=== PATIENT | male | born 1940 | race Caucasian/White ===

== ENCOUNTER 2019-06-14 12:06 | Inpatient (IN) | payer MEDICARE, OTHER ==
[~2019-06-14] VITALS: Ht 175.3 cm; Wt 91.3 kg
[2019-06-14] VITALS (8 sets, daily range): BP systolic 98–169; BP diastolic 48–92
--- NOTE | 2019-06-14 13:54 | RAD ---
CT HEAD AND CERVICAL SPINE WO History: Trauma. Head and neck pain. Mid sacral relation. Comparison: None. Technique: Noncontrast CT imaging was performed of the head and cervical spine. Coronal and sagittal reconstructions were performed. Exposure: One or more of the following individualized dose reduction techniques were utilized for this examination: 1. Automated exposure control 2. Adjustment of the mA and/or kV according to patient size 3. Use of iterative reconstruction technique. Findings: Head CT: No intracranial hemorrhage. No mass effect. No hydrocephalus. Extra-axial spaces are unremarkable. Mild foci of decreased attenuation within the hemispheric white matter, most often due to chronic microvascular ischemia. Imaged orbits are unremarkable. Imaged paranasal sinuses and mastoid air cells are clear. Chronic nasal bone deformity. Cervical spine CT: Acute fracture involving C2 odontoid base with extension into the lateral mass bilaterally. Normal alignment C1 on C2. T2 superior endplate compression fracture with mild height loss. Partial vertebral body and facet bony fusion C3-C4. Minimal grade 1 anterolisthesis C7 on T1. Multilevel degenerative disc changes most prominent C5-C6 and C6-C7. Multilevel facet arthropathy. Multilevel bony neural foraminal narrowing. Multilevel canal narrowing. Retropharyngeal course of the bilateral common and internal carotid arteries. Pulmonary emphysema. Impression: Head CT: 1. No acute intracranial abnormality. Cervical spine CT: 1. Acute type III odontoid fracture. 2. Mild chronic appearing T2 compression fracture. 3. Multilevel cervical spondylosis. Electronically signed by: Oscar Garcia DO (06/14/2019 1:51 PM) [id number]
--- NOTE | 2019-06-14 14:10 | PHYS DOC ---
Past Medical History Past Medical History: A-Fib, High Cholesterol, Hypertension, Hypothyroid, Renal Disease (stage 2 CRF) Additional Past Medical Histor: gout, BPH, osteoporosis, Additional Past Surgical Histo: back, nasal x2 Alcohol Use: Occasionally (wine weekly while playing cards) Drug Use: None Adult General Chief Complaint Chief Complaint: MECHANICAL FALL HPI HPI Patient is a 78 year old male who presents to the emergency department with complaints of neck pain and a headache after a fall down approximately 7 steps last night. Patient states he has a history of balance problems and he had been drinking wine last night when he lost his balance and fell down the steps. Patient states that he takes Pradaxa for a-fib. He denies any nausea, vomiting, loss of consciousness, numbness, tingling, weakness, vision changes, coordination problems, or difficulty speaking. He states that he has felt tightness in his neck. Patient currently rates his pain a 5 out of 10 on the pain scale, there are no alleviating factors the pain increases with movement. Patient states that he had drank approximately 2 glasses of wine while he was playing cards and reported feeling intoxicated at the time of the fall to nursing staff. Pt denies any bleeding, abrasions, or bruising at this time. He denies any chest pain, shortness of breath, palpitations, or dizziness prior to the fall. All other ROS is neg unless otherwise noted in HPI. Review of Systems Review of Systems See Above Allergies Allergies Allergies Coded Allergies Type Severity Reaction Last Updated Verified No Known Drug Allergies 06/14/19 No Physical Exam Physical Exam See Above Constitutional: Well developed, well nourished, no acute distress, non-toxic appearance. [] HENT: Normocephalic, atraumatic, bilateral external ears normal, oropharynx moist, no oral exudates, nose normal. [] Eyes: PERRLA, EOMI, conjunctiva normal, no discharge. [] Neck: ROM testing deferred. TTP of bony cervical spine. no crepitus or deformity, no stridor. [] Cardiovascular:Heart rate regularly irregular rhythm Lungs & Thorax: Bilateral breath sounds clear to auscultation [] Abdomen: soft, no tenderness Skin: Warm, dry, no erythema, no rash. [] Back: No CVA tenderness. [] Extremities: No cyanosis, no clubbing, ROM intact, no edema. [] Neurologic: Alert and oriented X 3, no focal deficits noted. [] Psychologic: Affect normal, judgement normal, mood normal. [] Current Patient Data Vital Signs Vital Signs Date Time Temp Pulse Resp B/P (MAP) Pulse Ox O2 Delivery O2 Flow Rate FiO2 06/14/19 14:30 68 16 95 06/14/19 12:40 97.5 172/80 (110) Room Air 97.5 EKG EKG [] Radiology/Procedures Radiology/Procedures PROCEDURE: CT HEAD AND CERVICAL SPINE WO CT HEAD AND CERVICAL SPINE WO History: Trauma. Head and neck pain. Mid sacral relation. Comparison: None. Technique: Noncontrast CT imaging was performed of the head and cervical spine. Coronal and sagittal reconstructions were performed. Exposure: One or more of the following individualized dose reduction techniques were utilized for this examination: 1. Automated exposure control 2. Adjustment of the mA and/or kV according to patient size 3. Use of iterative reconstruction technique. Findings: Head CT: No intracranial hemorrhage. No mass effect. No hydrocephalus. Extra-axial spaces are unremarkable. Mild foci of decreased attenuation within the hemispheric white matter, most often due to chronic microvascular ischemia. Imaged orbits are unremarkable. Imaged paranasal sinuses and mastoid air cells are clear. Chronic nasal bone deformity. Cervical spine CT: Acute fracture involving C2 odontoid base with extension into the lateral mass bilaterally. Normal alignment C1 on C2. T2 superior endplate compression fracture with mild height loss. Partial vertebral body and facet bony fusion C3-C4. Minimal grade 1 anterolisthesis C7 on T1. Multilevel degenerative disc changes most prominent C5-C6 and C6-C7. Multilevel facet arthropathy. Multilevel bony neural foraminal narrowing. Multilevel canal narrowing. Retropharyngeal course of the bilateral common and internal carotid arteries. Pulmonary emphysema. Impression: Head CT: 1. No acute intracranial abnormality. Cervical spine CT: 1. Acute type III odontoid fracture. 2. Mild chronic appearing T2 compression fracture. 3. Multilevel cervical spondylosis. [] Course & Med Decision Making Course & Med Decision Making Pertinent Labs and Imaging studies reviewed. (See chart for details) dx: fall from standing, Acute stage III C2 odontoid fx Pt was placed in a c-collar after arrival to room #11. CT head and C-spine revealed: Head CT: 1. No acute intracranial abnormality. Cervical spine CT: 1. Acute type III odontoid fracture. 2. Mild chronic appearing T2 compression fracture. 3. Multilevel cervical spondylosis. CBC unremarkable, CMP: Con[employer] Pile [employer] Operator 1.4, glucose 104, Mg 1.3, bili 1.2 otherwise unremarkable; PT 19.6, INR 1.7, APTT 46 1411 Spoke with Jumana ZACARIAS with Dr. Saldana, will keep pt in cervical collar and admit to ICU with q 2H neuro checks [address] Mckeon who is the admitting physician, and care was assumed following discussion of patient. Patient's vital signs stable. Patient remains afebrile, appears nontoxic, respirations even and unlabored. Patient will be admitted to the ICU floor. Patient's case and plan of care also discussed with Dr. Addy Falcon Disclaimer Ezekiel Disclaimer This electronic medical record was generated, in whole or in part, using a voice recognition dictation system. Departure Departure Impression: Primary Impression: Odontoid fracture with type III morphology Additional Impression: Fall down steps Disposition: 09 ADMITTED INPATIENT Admitting Physician: MARISSA Marcus) Condition: STABLE Referrals: UNKNOWN PCP NAME (PCP) Problem Qualifiers Primary Impression: Odontoid fracture with type III morphology Encounter type: initial encounter Fracture type: closed Qualified Codes: S12.120A - Other displaced dens fracture, initial encounter for closed fracture Additional Impression: Fall down steps Encounter type: initial encounter Qualified Codes: W10.8XXA - Fall (on) (from) other stairs and steps, initial encounter KELECHI ISABEL APRN Jun 14, 2019 14:10
--- NOTE | 2019-06-14 15:34 | PDOC1 ---
History and Physical Date of Admission Date of Admission DATE: 06/14/19 TIME: 15:30 History of Present Illness History of Present Illness Mr. Gomez had a few glasses of wine last night, playing cards, he then fell down hard, and had severe neck pain. He did go to sleep, and awoke in pain. He walked into the ER today, CT scan neck showed acute c2 fracture, he took his pradaxa this AM for his Afib Past Medical History Cardiovascular: AFIB, HTN Family History Family History: Family History Unknown Social History Smoke: No ALCOHOL: other (heavy at times) Allergies Allergies: Coded Allergies: No Known Drug Allergies (Unverified , 06/14/19) ROS General: No: Chills, Night Sweats, Fatigue, Malaise, Appetite, Other PSYCHOLOGICAL ROS: No: Anxiety, Behavioral Disorder, Concentration difficultie, Decreased libido, Depression, Disorientation, Hallucinations, Hostility, Irritablity, Memory difficulties, Mood Swings, Obsessive thoughts, Physical abuse, Sexual abuse, Sleep disturbances, Suicidal ideation, Other Eyes: No Blurry vision, No Decreased vision, No Double vision, No Dry eyes, No Excessive tearing, No Eye Pain, No Itchy Eyes, No Loss of vision, No Photophobia, No Scotomata, No Uses contacts, No Uses glasses, No Other HEENT: No: Heacaches, Visual Changes, Hearing change, Nasal congestion, Nasal discharge, Oral lesions, Sinus pain, Sore Throat, Epistaxis, Sneezing, Snoring, Tinnitus, Vertigo, Vocal changes, Other ENDOCRINE: No: Breast Changes, Galactorrhea, Hair Pattern Changes, Hot Flashes, Malaise/lethargy, Mood Swings, Palpitations, Polydipsia/polyuria, Skin Changes, Temperature Intolerance, Unexpected Weight Changes, Other Respiratory: No: Cough, Hemoptysis, Orthopnea, Pleuritic Pain, Shortness of breath, SOB with excertion, Sputum Changes, Stridor, Tachypnea, Wheezing, Other Cardiovascular: No Chest Pain, No Palpitations, No Orthopnea, No Paroxysmal Noc. Dyspnea, No Edema, No Lt Headedness, No Other Gastrointestinal: No Nausea, No Vomiting, No Abdominal Pain, No Diarrhea, No Constipation, No Melena, No Hematochezia, No Other Genitourinary: No Dysuria, No Frequency, No Incontinence, No Hematuria, No Retention, No Discharge, No Urgency, No Pain, No Flank Pain, No Other, No , No , No , No , No , No , No Musculoskeletal: Yes Joint Pain, Yes Joint Stiffness, Yes Pain In: (neck) Neurological: Yes Gait Disturbance; No Behavorial Changes, No Bowel/Bladder ControlChng, No Confusion, No Dizziness, No Headaches, No Impaired Coord/balance, No Memory Loss, No Numbness/Tingling, No Seizures, No Speech Problems, No Tremors, No Visual Changes, No Weakness, No Other Skin: No Dry Skin, No Eczema, No Hair Changes, No Lumps, No Mole Changes, No Mottling, No Nail Changes, No Pruritus, No Rash, No Skin Lesion Changes, No Other, No Acne Physical Exam General: Alert, Oriented X3, Cooperative, mild distress HEENT: Atraumatic Lungs: Clear to auscultation Heart: no gallops, no murmurs Rectal Exam: not examined Extremities: No cyanosis, No edema, Normal pulses Skin: No breakdown, No significant lesion Neuro: Normal gait, Normal speech, Normal tone, Sensation intact Psych/Mental Status: Mental status NL, Mood NL Vitals Vitals Vital Signs Date Time Temp Pulse Resp B/P (MAP) Pulse Ox O2 Delivery O2 Flow Rate FiO2 06/14/19 12:40 97.5 66 16 172/80 (110) 98 Room Air 97.5 VTE Prophylaxis Ordered VTE Prophylaxis Devices: Yes VTE Pharmacological Prophylaxi: Contraindicated Assessment/Plan Assessment/Plan neck pain acute c2 fracture, place in hard collar, consult neurosurg htn obese, BMI 31 EtOH use lastnight, binge yesterday afib, rate controlled, HOLD pradaxa, may need surg LYLE SCOTT MD Jun 14, 2019 15:34
[2019-06-14] MEDS ORDERED: METOPROLOL TART IMMED RELEASE 50 MG TABLET. PO ONE (15:45)
[2019-06-14 15:56] LABS: BASO % 1 % (0-3); EOS % 0 % (0-3); HEMATOCRIT 39.8 % (39.0-53.0); HEMOGLOBIN 13.6 g/dL (13.0-17.5); LYMPH # 1.1 x10^3/uL (1.0-4.8); LYMPH % 16 % (24-48); MEAN CORPUSCULAR HEMOGLOBIN 36 pg (25-35); MEAN CORPUSCULAR HGB CONC 34 g/dL (31-37); MEAN CORPUSCULAR VOLUME 105 fL (79-100); MONO # 0.6 x10^3/uL (0.0-1.1); MONO % 8 % (0-9); NEUT % 75 % (31-73); PLATELET COUNT 116 x10^3/uL (140-400); RED BLOOD COUNT 3.78 x10^6/uL (4.30-5.70); RED CELL DISTRIBUTION WIDTH 13.7 % (11.5-14.5); WHITE BLOOD COUNT 6.7 x10^3/uL (4.0-11.0)
[2019-06-14 16:05] LABS: PROTHROMBIN TIME PATIENT 19.6 SEC (11.7-14.0)
[2019-06-14 16:15] LABS: CALCIUM 8.7 mg/dL (8.5-10.1); CREATININE 1.4 mg/dL (0.7-1.3)
[2019-06-14 16:21] LABS: ALBUMIN 3.4 g/dL (3.4-5.0); ALBUMIN/GLOBULIN RATIO 0.7 (1.0-1.7); MAGNESIUM 1.3 mg/dL (1.8-2.4); TOTAL BILIRUBIN 1.2 mg/dL (0.2-1.0); TOTAL PROTEIN 8.2 g/dL (6.4-8.2)
--- NOTE | 2019-06-14 17:08 | PDOC ---
Provider Note Provider Note Patient seen and examined in ER room 11 fell last night down stairs neck pain neuro intact CT with type III odontoid fracture in hard collar keep in ICU overnight with neuro checks Cervical MRI tomorrow will follow LUIS OSORIO MD Jun 14, 2019 17:08
[2019-06-14] MEDS ORDERED: MORPHINE SULFATE 4 MG/ML VIAL. IV PRN (17:30)
[2019-06-14] MEDS ORDERED: MAGN400C PO (17:33)
[2019-06-14] MEDS ORDERED: OMEG1CAP38 PO (17:33)
[2019-06-14] MEDS ORDERED: ATOR40TA59 PO (17:33)
[2019-06-14] MEDS ORDERED: METO200T46 PO (17:33)
[2019-06-14] MEDS ORDERED: AMIO200T4 PO (17:33)
[2019-06-14] MEDS ORDERED: DABI150C PO (17:33)
[2019-06-14] MEDS ORDERED: CHOL10003 PO (17:33)
[2019-06-14] MEDS ORDERED: SOTA160T7 PO (17:33)
[2019-06-14] MEDS ORDERED: ALLO300T PO (17:33)
[2019-06-14] MEDS ORDERED: LEVO150T5 PO (17:33)
[2019-06-14] MEDS ORDERED: TAMS0.4C97 PO (17:33)
[2019-06-14] MEDS ORDERED: FERR324T2 PO (17:33)
[2019-06-14] MEDS ORDERED: UBID200C7 PO (17:33)
[2019-06-14] MEDS ORDERED: MAGNESIUM SULFATE 2GM 50 ML IV ONE (18:00)
[2019-06-14] MEDS: HYDROcodone/APAP 5/325MG 1 TAB TABLET PO PRN ×2 (18:04→23:05)
[2019-06-15] VITALS (16 sets, daily range): BP systolic 123–181; BP diastolic 68–93
[2019-06-15] MEDS: HYDROcodone/APAP 5/325MG 1 TAB TABLET PO PRN ×3 (07:10→17:23)
[2019-06-15 08:57] LABS: CALCIUM 8.5 mg/dL (8.5-10.1); CREATININE 1.3 mg/dL (0.7-1.3); GFR 53.4; MAGNESIUM 1.7 mg/dL (1.8-2.4); POTASSIUM 4.2 mmol/L (3.5-5.1)
[2019-06-15] MEDS: CHOLECALCIFEROL (VITAMIN D3) 1,000 UNIT TABLET PO SCH (10:17)
[2019-06-15] MEDS: MAGNESIUM OXIDE 400 MG TABLET PO SCH (10:19)
[2019-06-15] MEDS: OMEGA-3 FATTY ACIDS/FISH OIL 1,000 MG CAPSULE. PO SCH (10:19)
[2019-06-15] MEDS: AMIODARONE HCL 200 MG TABLET. PO SCH (10:19)
[2019-06-15] MEDS: ALLOPURINOL 300 MG TABLET. PO SCH (10:20)
[2019-06-15] MEDS: METOPROLOL SUCC 24HR ER 100 MG TAB.ER.24H. PO SCH (10:20)
--- NOTE | 2019-06-15 10:57 | NUR ---
SS following for discharge planning. SS reviewed pt chart. Pt is from home with spouse and is currently on room air. SS will continue to follow for discharge planning.
[2019-06-15] MEDS ORDERED: TAMSULOSIN 0.4 MG CAP.ER.24H. PO SCH (11:00)
[2019-06-15] MEDS ORDERED: SOTALOL 80 MG TABLET. PO SCH (11:00)
[2019-06-15] MEDS ORDERED: ATORVASTATIN CALCIUM 40 MG TABLET. PO SCH (11:00)
[2019-06-15] MEDS: LEVOTHYROXINE 150 MCG TABLET PO SCH (11:30)
[2019-06-15] MEDS ORDERED: ANTI-COAG MONITOR BY PHARMACY. MC PRN (11:30)
--- NOTE | 2019-06-15 12:22 | PDOC ---
[employer] NOTE Chief Complaint Chief Complaint Acute type II C2 Odontoid fracture. History of Present Illness History of Present Illness Patient is a 78 year old male who presents to the emergency department with complaints of neck pain and a headache after a fall down approximately 7 steps last night. Patient states he has a history of balance problems and he had been drinking wine last night when he lost his balance and fell down the steps. Patient states that he takes Pradaxa for a-fib. He denies any nausea, vomiting, loss of consciousness, numbness, tingling, weakness, vision changes, coordination problems, or difficulty speaking. He states that he has felt tightness in his neck. Patient currently rates his pain a 5 out of 10 on the pain scale, there are no alleviating factors the pain increases with movement. Patient states that he had drank approximately 2 glasses of wine while he was playing cards and reported feeling intoxicated at the time of the fall to nursing staff. Pt denies any bleeding, abrasions, or bruising at this time. He denies any chest pain, shortness of breath, palpitations, or dizziness prior to the fall. All other ROS is neg unless otherwise noted in HPI. 06/15: Patient was seen and examined in ICU. Patient was noted to be alert and oriented X3, patient is in good spirits. Patient is ready to be transferred out of the ICU and begin PT/OT. Vitals/I&O Vitals/I&O: Vital Signs Date Time Temp Pulse Resp B/P (MAP) Pulse Ox O2 Delivery O2 Flow Rate FiO2 06/15/19 11:33 Room Air 06/15/19 11:00 68 10 148/82 (104) 95 06/15/19 07:00 97.7 97.7 I & O 06/14/19 06/14/19 06/15/19 15:00 23:00 07:00 Intake Total 50 ml 50 ml Output Total 650 ml Balance 50 ml -600 ml Physical Exam General: Alert, Oriented X3, Cooperative, mild distress Heart: Regular rate, Normal S1, Normal S2, No murmurs Lungs: Clear Abdomen: Normal bowel sounds, Soft, No tenderness, No hepatosplenomegaly Extremities: No cyanosis, No edema, Normal pulses Skin: No breakdown, No significant lesion Labs Labs: Laboratory Tests Test 06/14/19 15:38 06/15/19 08:35 White Blood Count 6.7 x10^3/uL (4.0-11.0) Red Blood Count 3.78 x10^6/uL (4.30-5.70) Hemoglobin 13.6 g/dL (13.0-17.5) Hematocrit 39.8 % (39.0-53.0) Mean Corpuscular Volume 105 fL (79-100) Mean Corpuscular Hemoglobin 36 pg (25-35) Mean Corpuscular Hemoglobin Concent 34 g/dL (31-37) Red Cell Distribution Width 13.7 % (11.5-14.5) Platelet Count 116 x10^3/uL (140-400) Neutrophils (%) (Auto) 75 % (31-73) Lymphocytes (%) (Auto) 16 % (24-48) Monocytes (%) (Auto) 8 % (0-9) Eosinophils (%) (Auto) 0 % (0-3) Basophils (%) (Auto) 1 % (0-3) Neutrophils # (Auto) 5.0 x10^3/uL (1.8-7.7) Lymphocytes # (Auto) 1.1 x10^3/uL (1.0-4.8) Monocytes # (Auto) 0.6 x10^3/uL (0.0-1.1) Eosinophils # (Auto) 0.0 x10^3/uL (0.0-0.7) Basophils # (Auto) 0.0 x10^3/uL (0.0-0.2) Prothrombin Time 19.6 SEC (11.7-14.0) Prothromb Time International Ratio 1.7 (0.8-1.1) Activated Partial Thromboplast Time 46 SEC (24-38) Sodium Level 140 mmol/L (136-145) 139 mmol/L (136-145) Potassium Level 5.0 mmol/L (3.5-5.1) 4.2 mmol/L (3.5-5.1) Chloride Level 104 mmol/L (98-107) 105 mmol/L (98-107) Carbon Dioxide Level 26 mmol/L (21-32) 26 mmol/L (21-32) Anion Gap 10 (6-14) 8 (6-14) Blood Urea Nitrogen 22 mg/dL (8-26) 22 mg/dL (8-26) Creatinine 1.4 mg/dL (0.7-1.3) 1.3 mg/dL (0.7-1.3) Estimated GFR (Cockcroft-Gault) 49.0 53.4 BUN/Creatinine Ratio 16 (6-20) Glucose Level 104 mg/dL (70-99) 104 mg/dL (70-99) Calcium Level 8.7 mg/dL (8.5-10.1) 8.5 mg/dL (8.5-10.1) Magnesium Level 1.3 mg/dL (1.8-2.4) 1.7 mg/dL (1.8-2.4) Total Bilirubin 1.2 mg/dL (0.2-1.0) Aspartate Amino Transf (AST/SGOT) 48 U/L (15-37) Alanine Aminotransferase (ALT/SGPT) 43 U/L (16-63) Alkaline Phosphatase 88 U/L (46-116) Total Protein 8.2 g/dL (6.4-8.2) Albumin 3.4 g/dL (3.4-5.0) Albumin/Globulin Ratio 0.7 (1.0-1.7) Ethyl Alcohol Level < 10 mg/dL (0-10) Review of Systems Review of Systems: Patient denies N/V and SOB Assessment and Plan Assessmemt and Plan Problems Medical Problems: (1) Fall down steps Status: Acute (2) Odontoid fracture with type III morphology Status: Acute Assessment: Acute type II C2 Odontoid fracture Plan: 1. ICU monitoring 2. PT/OT 3. Transfer out of ICU 4. Resume home meds including anti-coagulation meds 5. DVT prophylaxis 6. Full code Comment Review of Relevant I have reviewed the following items arjun (where applicable) has been applied. Medications: Current Medications Medications (Trade) Dose Ordered Sig/Karolina Route PRN Reason Start Time Stop Time Status Last Admin Dose Admin Metoprolol Tartrate (Lopressor) 50 mg 1X ONCE PO 06/14/19 15:45 06/14/19 15:46 DC 06/14/19 18:04 Magnesium Sulfate 50 ml @ 25 mls/hr 1X ONCE IV 06/14/19 18:00 06/14/19 19:59 DC 06/14/19 18:04 Acetaminophen/ Hydrocodone Bitart (Lortab 5/325) 1 tab PRN Q4HRS PRN PO PAIN 06/14/19 17:30 06/15/19 11:33 Allopurinol (Zyloprim) 300 mg DAILY PO 06/15/19 11:00 06/15/19 10:20 Amiodarone HCl (Cordarone) 200 mg DAILY PO 06/15/19 11:00 06/15/19 10:19 Vitamin D (Vitamin D3) 1,000 unit DAILY PO 06/15/19 11:00 06/15/19 10:17 Levothyroxine Sodium (Synthroid) 150 mcg DAILY06 PO 06/15/19 11:00 06/15/19 11:30 Magnesium Oxide (Magnesium Oxide) 400 mg DAILY PO 06/15/19 11:00 06/15/19 10:19 Metoprolol Succinate (Toprol Xl) 200 mg DAILY PO 06/15/19 11:00 06/15/19 10:20 Fish Oil (Fish Oil) 1,000 mg DAILY PO 06/15/19 11:00 06/15/19 10:19 SUZY REYNOLDS III DO Jun 15, 2019 12:22
[2019-06-15] MEDS: DABIGATRAN ETEXILATE 150 MG CAPSULE. PO SCH ×2 (12:53→20:59)
[2019-06-15] MEDS: FERROUS SULFATE 325 MG TABLET. PO SCH (12:53)
--- NOTE | 2019-06-15 13:51 | NUR ---
Patient transferred to 4th floor via wheel chair with transportation, report had been called to [facility].
--- NOTE | 2019-06-15 14:55 | PDOC ---
PROGRESS NOTES Subjective Subjective seen in ICU pain Improved today with collar Objective Objective Vital Signs Date Time Temp Pulse Resp B/P (MAP) Pulse Ox O2 Delivery O2 Flow Rate FiO2 06/15/19 11:33 Room Air 06/15/19 11:00 68 10 148/82 (104) 95 06/15/19 07:00 97.7 97.7 Intake and Output 06/15/19 07:00 Intake Total 100 ml Output Total 650 ml Balance -550 ml Intake Oral 50 ml IV Total 50 ml Output Urine Total 650 ml Physical Exam General: Alert, Oriented X3, Cooperative HEENT: Other (hard collar on) MUSCULOSKELETAL: Other (JOE) Neuro: Strength at 5/5 X4 ext Assessment Assessment Problems Medical Problems: (1) Fall down steps Status: Acute (2) Odontoid fracture with type III morphology Status: Acute Plan Plan of Care will need cervical collar for 3 months will obtain repeat cervical x rays in a week will follow Comment Review of Relevant I have reviewed the following items arjun (where applicable) has been applied. Labs Laboratory Tests Test 06/14/19 15:38 06/15/19 08:35 White Blood Count 6.7 x10^3/uL (4.0-11.0) Red Blood Count 3.78 x10^6/uL (4.30-5.70) Hemoglobin 13.6 g/dL (13.0-17.5) Hematocrit 39.8 % (39.0-53.0) Mean Corpuscular Volume 105 fL (79-100) Mean Corpuscular Hemoglobin 36 pg (25-35) Mean Corpuscular Hemoglobin Concent 34 g/dL (31-37) Red Cell Distribution Width 13.7 % (11.5-14.5) Platelet Count 116 x10^3/uL (140-400) Neutrophils (%) (Auto) 75 % (31-73) Lymphocytes (%) (Auto) 16 % (24-48) Monocytes (%) (Auto) 8 % (0-9) Eosinophils (%) (Auto) 0 % (0-3) Basophils (%) (Auto) 1 % (0-3) Neutrophils # (Auto) 5.0 x10^3/uL (1.8-7.7) Lymphocytes # (Auto) 1.1 x10^3/uL (1.0-4.8) Monocytes # (Auto) 0.6 x10^3/uL (0.0-1.1) Eosinophils # (Auto) 0.0 x10^3/uL (0.0-0.7) Basophils # (Auto) 0.0 x10^3/uL (0.0-0.2) Prothrombin Time 19.6 SEC (11.7-14.0) Prothromb Time International Ratio 1.7 (0.8-1.1) Activated Partial Thromboplast Time 46 SEC (24-38) Sodium Level 140 mmol/L (136-145) 139 mmol/L (136-145) Potassium Level 5.0 mmol/L (3.5-5.1) 4.2 mmol/L (3.5-5.1) Chloride Level 104 mmol/L (98-107) 105 mmol/L (98-107) Carbon Dioxide Level 26 mmol/L (21-32) 26 mmol/L (21-32) Anion Gap 10 (6-14) 8 (6-14) Blood Urea Nitrogen 22 mg/dL (8-26) 22 mg/dL (8-26) Creatinine 1.4 mg/dL (0.7-1.3) 1.3 mg/dL (0.7-1.3) Estimated GFR (Cockcroft-Gault) 49.0 53.4 BUN/Creatinine Ratio 16 (6-20) Glucose Level 104 mg/dL (70-99) 104 mg/dL (70-99) Calcium Level 8.7 mg/dL (8.5-10.1) 8.5 mg/dL (8.5-10.1) Magnesium Level 1.3 mg/dL (1.8-2.4) 1.7 mg/dL (1.8-2.4) Total Bilirubin 1.2 mg/dL (0.2-1.0) Aspartate Amino Transf (AST/SGOT) 48 U/L (15-37) Alanine Aminotransferase (ALT/SGPT) 43 U/L (16-63) Alkaline Phosphatase 88 U/L (46-116) Total Protein 8.2 g/dL (6.4-8.2) Albumin 3.4 g/dL (3.4-5.0) Albumin/Globulin Ratio 0.7 (1.0-1.7) Ethyl Alcohol Level < 10 mg/dL (0-10) Laboratory Tests Test 06/14/19 15:38 06/15/19 08:35 White Blood Count 6.7 x10^3/uL (4.0-11.0) Red Blood Count 3.78 x10^6/uL (4.30-5.70) Hemoglobin 13.6 g/dL (13.0-17.5) Hematocrit 39.8 % (39.0-53.0) Mean Corpuscular Volume 105 fL (79-100) Mean Corpuscular Hemoglobin 36 pg (25-35) Mean Corpuscular Hemoglobin Concent 34 g/dL (31-37) Red Cell Distribution Width 13.7 % (11.5-14.5) Platelet Count 116 x10^3/uL (140-400) Neutrophils (%) (Auto) 75 % (31-73) Lymphocytes (%) (Auto) 16 % (24-48) Monocytes (%) (Auto) 8 % (0-9) Eosinophils (%) (Auto) 0 % (0-3) Basophils (%) (Auto) 1 % (0-3) Neutrophils # (Auto) 5.0 x10^3/uL (1.8-7.7) Lymphocytes # (Auto) 1.1 x10^3/uL (1.0-4.8) Monocytes # (Auto) 0.6 x10^3/uL (0.0-1.1) Eosinophils # (Auto) 0.0 x10^3/uL (0.0-0.7) Basophils # (Auto) 0.0 x10^3/uL (0.0-0.2) Prothrombin Time 19.6 SEC (11.7-14.0) Prothromb Time International Ratio 1.7 (0.8-1.1) Activated Partial Thromboplast Time 46 SEC (24-38) Sodium Level 140 mmol/L (136-145) 139 mmol/L (136-145) Potassium Level 5.0 mmol/L (3.5-5.1) 4.2 mmol/L (3.5-5.1) Chloride Level 104 mmol/L (98-107) 105 mmol/L (98-107) Carbon Dioxide Level 26 mmol/L (21-32) 26 mmol/L (21-32) Anion Gap 10 (6-14) 8 (6-14) Blood Urea Nitrogen 22 mg/dL (8-26) 22 mg/dL (8-26) Creatinine 1.4 mg/dL (0.7-1.3) 1.3 mg/dL (0.7-1.3) Estimated GFR (Cockcroft-Gault) 49.0 53.4 BUN/Creatinine Ratio 16 (6-20) Glucose Level 104 mg/dL (70-99) 104 mg/dL (70-99) Calcium Level 8.7 mg/dL (8.5-10.1) 8.5 mg/dL (8.5-10.1) Magnesium Level 1.3 mg/dL (1.8-2.4) 1.7 mg/dL (1.8-2.4) Total Bilirubin 1.2 mg/dL (0.2-1.0) Aspartate Amino Transf (AST/SGOT) 48 U/L (15-37) Alanine Aminotransferase (ALT/SGPT) 43 U/L (16-63) Alkaline Phosphatase 88 U/L (46-116) Total Protein 8.2 g/dL (6.4-8.2) Albumin 3.4 g/dL (3.4-5.0) Albumin/Globulin Ratio 0.7 (1.0-1.7) Ethyl Alcohol Level < 10 mg/dL (0-10) Medications Current Medications Metoprolol Tartrate (Lopressor) 50 mg 1X ONCE PO Last administered on 06/14/19at 18:04; Start 06/14/19 at 15:45; Stop 06/14/19 at 15:46; Status DC Magnesium Sulfate 50 ml @ 25 mls/hr 1X ONCE IV Last administered on 06/14/19at 18:04; Start 06/14/19 at 18:00; Stop 06/14/19 at 19:59; Status DC Acetaminophen/ Hydrocodone Bitart (Lortab 5/325) 1 tab PRN Q4HRS PRN PO PAIN Last administered on 06/15/19at 11:33; Start 06/14/19 at 17:30 Morphine Sulfate (Morphine Sulfate) 4 mg PRN Q4HRS PRN IV PAIN; Start 06/14/19 at 17:30 Allopurinol (Zyloprim) 300 mg DAILY PO Last administered on 06/15/19at 10:20; Start 06/15/19 at 11:00 Amiodarone HCl (Cordarone) 200 mg DAILY PO Last administered on 06/15/19 10:19; Start 06/15/19 at 11:00 Atorvastatin Calcium (Lipitor) 40 mg DAILY PO ; Start 06/15/19 at 11:00; Stop 06/15/19 at 10:37; Status DC Vitamin D (Vitamin D3) 1,000 unit DAILY PO Last administered on 06/15/19at 10:17; Start 06/15/19 at 11:00 Levothyroxine Sodium (Synthroid) 150 mcg DAILY06 PO Last administered on 06/15/19at 11:30; Start 06/15/19 at 11:00 Tamsulosin HCl (Flomax) 0.4 mg DAILY PO ; Start 06/15/19 at 11:00; Stop 06/15/19 at 10:37; Status DC Ferrous Sulfate (Feosol) 325 mg DAILYWBKFT PO Last administered on 06/15/19at 12:53; Start 06/15/19 at 12:00 Magnesium Oxide (Magnesium Oxide) 400 mg DAILY PO Last administered on 06/15/19at 10:19; Start 06/15/19 at 11:00 Metoprolol Succinate (Toprol Xl) 200 mg DAILY PO Last administered on 06/15/19at 10:20; Start 06/15/19 at 11:00 Fish Oil (Fish Oil) 1,000 mg DAILY PO Last administered on 06/15/19at 10:19; Start 06/15/19 at 11:00 Sotalol HCl (Betapace) 160 mg DAILY PO ; Start 06/15/19 at 11:00; Status Cancel Non-Formulary Medication (Ubidecarenone (Co Q-10)) 1 cap DAILY PO ; Start 06/16/19 at 09:00; Status UNV Atorvastatin Calcium (Lipitor) 40 mg HS PO ; Start 06/15/19 at 21:00 Tamsulosin HCl (Flomax) 0.4 mg HS PO ; Start 06/15/19 at 21:00 Dabigatran (Pradaxa) 150 mg BID PO Last administered on 06/15/19at 12:53; Start 06/15/19 at 11:30 Info (Anti-Coagulation Monitoring By Pharmacy) 1 each PRN DAILY PRN ARIANNA CORDERO; Start 06/15/19 at 11:30 Active Scripts Active Reported Magnesium (Magnesium Oxide) 400 Mg Capsule 1 Cap PO DAILY 30 Days Metoprolol Succinate ( Xl ) (Metoprolol Succinate) 200 Mg Tab.er.24h 1 Tab PO DAILY Ferrous Gluconate 324 Mg Tablet 324 Mg PO DAILY Flomax (Tamsulosin Hcl) 0.4 Mg Cap.er.24h 1 Cap PO HS Vitamin D3 (Cholecalciferol (Vitamin D3)) 1,000 Unit Tablet 1 Tab PO DAILY Co Q-10 (Ubidecarenone) 200 Mg Capsule 1 Cap PO DAILY 30 Days [place] 3 Fish Oil Softgel ([place]-3 Fatty Acids/Fish Oil) 1 Each Capsule.dr 1 Each PO DAILY Pradaxa (Dabigatran Etexilate Mesylate) 150 Mg Capsule 1 Cap PO BID Levothyroxine Sodium 150 Mcg Tablet 1 Tab PO DAILY Atorvastatin Calcium 40 Mg Tablet 1 Tab PO HS Amiodarone Hcl 200 Mg Tablet 1 Tab PO DAILY Allopurinol 300 Mg Tablet 1 Tab PO DAILY Vitals/I & O Vital Sign - Last 24 Hours 06/14/19 06/14/19 06/14/19 06/14/19 15:30 16:30 17:00 17:15 Temp 97.9 97.9 Pulse 68 66 68 68 Resp 16 16 16 17 B/P (MAP) 142/92 (109) Pulse Ox 96 96 96 97 O2 Delivery Room Air 06/14/19 06/14/19 06/14/19 06/14/19 17:30 18:00 18:04 18:04 Pulse 66 66 66 Resp 17 17 B/P (MAP) 169/76 (107) 143/79 (100) 143/79 Pulse Ox 97 97 96 O2 Delivery Room Air Room Air 06/14/19 06/14/19 06/14/19 06/14/19 18:10 19:00 19:04 19:39 Pulse 76 Resp 17 17 B/P (MAP) 118/64 (82) Pulse Ox 95 95 O2 Delivery Room Air Room Air Room Air Room Air 06/14/19 06/14/19 06/14/19 06/14/19 20:00 21:00 22:00 23:00 Temp 98.1 98.1 Pulse 66 68 85 71 Resp 14 14 20 16 B/P (MAP) 158/65 (96) 98/48 (65) 111/53 (72) 127/70 (89) Pulse Ox 95 93 96 94 O2 Delivery Room Air Room Air Room Air Room Air 06/14/19 06/14/19 06/15/19 06/15/19 23:05 23:42 00:00 00:05 Temp 97.5 97.5 Pulse 66 Resp 18 16 16 B/P (MAP) 123/77 (92) Pulse Ox 96 95 94 O2 Delivery Room Air Room Air Room Air Room Air 06/15/19 06/15/19 06/15/19 06/15/19 01:00 02:00 03:00 03:46 Pulse 69 69 68 Resp 14 14 18 B/P (MAP) 151/75 (100) 160/82 (108) 155/70 (98) Pulse Ox 97 94 97 O2 Delivery Room Air Room Air Room Air Room Air 06/15/19 06/15/19 06/15/19 06/15/19 04:00 05:00 06:00 07:00 Temp 97.8 97.7 97.8 97.7 Pulse 69 69 68 70 Resp 14 16 14 14 B/P (MAP) 158/79 (105) 156/71 (99) 165/81 (109) 177/93 (121) Pulse Ox 94 94 95 96 O2 Delivery Room Air Room Air Room Air Room Air 06/15/19 06/15/19 06/15/19 06/15/19 07:10 07:45 08:00 08:10 Pulse 68 Resp 2 11 B/P (MAP) 181/87 (118) Pulse Ox 95 96 O2 Delivery Room Air Room Air Room Air Room Air 06/15/19 06/15/19 06/15/19 06/15/19 09:00 10:00 10:19 10:20 Pulse 68 68 69 69 Resp 17 23 B/P (MAP) 168/77 (107) 155/84 (107) 155/84 155/84 Pulse Ox 95 96 O2 Delivery Room Air 06/15/19 06/15/19 11:00 11:33 Pulse 68 Resp 10 B/P (MAP) 148/82 (104) Pulse Ox 95 O2 Delivery Room Air Room Air Intake and Output 06/14/19 06/14/19 06/15/19 15:00 23:00 07:00 Intake Total 50 ml 50 ml Output Total 650 ml Balance 50 ml -600 ml LUIS OSORIO MD Jun 15, 2019 14:55
[2019-06-15] MEDS: TAMSULOSIN 0.4 MG CAP.ER.24H. PO SCH (20:59)
[2019-06-15] MEDS: ATORVASTATIN CALCIUM 40 MG TABLET. PO SCH (21:00)
[2019-06-16] MEDS: HYDROcodone/APAP 5/325MG 1 TAB TABLET PO PRN ×4 (01:02→19:48)
[2019-06-16 03:15] VITALS: BP 119/56
[2019-06-16] MEDS: LEVOTHYROXINE 150 MCG TABLET PO SCH (05:50)
[2019-06-16 07:00] VITALS: BP 131/61
[2019-06-16] MEDS ORDERED: ACETAMINOPHEN 500 MG TABLET PO PRN (08:30)
[2019-06-16] MEDS ORDERED: ONDANSETRON PF 4 MG/2 ML VIAL. IVP PRN (08:30)
[2019-06-16] MEDS: METOPROLOL SUCC 24HR ER 100 MG TAB.ER.24H. PO SCH (08:32)
[2019-06-16] MEDS: MAGNESIUM OXIDE 400 MG TABLET PO SCH (08:33)
[2019-06-16] MEDS: OMEGA-3 FATTY ACIDS/FISH OIL 1,000 MG CAPSULE. PO SCH (08:33)
[2019-06-16] MEDS: AMIODARONE HCL 200 MG TABLET. PO SCH (08:33)
[2019-06-16] MEDS: CHOLECALCIFEROL (VITAMIN D3) 1,000 UNIT TABLET PO SCH (08:33)
[2019-06-16] MEDS: FERROUS SULFATE 325 MG TABLET. PO SCH (08:33)
[2019-06-16] MEDS: DABIGATRAN ETEXILATE 150 MG CAPSULE. PO SCH ×2 (08:33→20:57)
[2019-06-16] MEDS: ALLOPURINOL 300 MG TABLET. PO SCH (08:33)
[2019-06-16] MEDS ORDERED: NON FORMULARY ITEM (Ubidecarenone (Co Q-10) 1 CAP) PO SCH (09:00)
[2019-06-16] MEDS ORDERED: HYDR-2761 PO (10:07)
--- NOTE | 2019-06-16 10:09 | SNU/HH DC ---
DISCHARGE ORDERS DISCHARGE INFORMATION: DISCHARGE DATE: Jun 16, 2019 FINAL DIAGNOSIS Problems Medical Problems: (1) Fall down steps Status: Acute (2) Odontoid fracture with type III morphology Status: Acute CODE STATUS: Code Status: Full ALF: SNF STAY <30 DAYS: Yes HOSPICE: HOSPICE: No HOSPICE EVAL & TREAT: No LTAC: ADMIT TO LTAC: No POST DISCHARGE ORDERS: DIET AFTER DISCHARGE: Regular CHECKS AFTER DISCHARGE: CHECKS AFTER DISCHARGE: Check blood press - daily FOLLOW-UP: PHYSICIAN FOLLOW-UP: cervical xrays week of 06/19/19. keep cervial collar x 3 weeks per neuro sx TREATMENT/EQUIPMENT ORDERS: Physical Therapy For: Evalulation/Treatment Occupational Therapy For: Evaluation/Treatment DISCHARGE MEDICATIONS: Home Meds Active Scripts Hydrocodone Bit/Acetaminophen (HYDROCODONE-APAP 5-325 ) 1 Tab Tablet, 1 TAB PO PRN Q4HRS PRN for PAIN, #30 TAB Prov:ASHANTI TARIQ MD 06/16/19 Reported Medications Magnesium Oxide (MAGNESIUM) 400 Mg Capsule, 1 CAP PO DAILY for rplacemenmt for 30 Days, #30 CAP 0 Refills 06/14/19 Metoprolol Succinate (METOPROLOL SUCCINATE ( XL )) 200 Mg Tab.er.24h, 1 TAB PO DAILY for beta blosker, #90 TAB 3 Refills 06/14/19 Ferrous Gluconate (FERROUS GLUCONATE) 324 Mg Tablet, 324 MG PO DAILY for iron, TAB 06/14/19 Tamsulosin Hcl (FLOMAX) 0.4 Mg Cap.er.24h, 1 CAP PO HS for prostrate, #90 CAP 3 Refills 06/14/19 Cholecalciferol (Vitamin D3) (VITAMIN D3) 1,000 Unit Tablet, 1 TAB PO DAILY for vit, #90 TAB 3 Refills 06/14/19 Ubidecarenone (CO Q-10) 200 Mg Capsule, 1 CAP PO DAILY for vit for 30 Days, #30 CAP 0 Refills 06/14/19 [place]-3 Fatty Acids/Fish Oil ([place] 3 FISH OIL SOFTGEL) 1 Each Capsule.dr, 1 EACH PO DAILY for fish oil, CAP 06/14/19 Dabigatran Etexilate Mesylate (PRADAXA) 150 Mg Capsule, 1 CAP PO BID for thinner, #180 CAP 3 Refills 06/14/19 Levothyroxine Sodium (LEVOTHYROXINE SODIUM) 150 Mcg Tablet, 1 TAB PO DAILY for thyroid condition, #90 TAB 3 Refills 06/14/19 Atorvastatin Calcium (ATORVASTATIN CALCIUM) 40 Mg Tablet, 1 TAB PO HS for cholesterol, #90 TAB 3 Refills 06/14/19 Amiodarone Hcl (AMIODARONE HCL) 200 Mg Tablet, 1 TAB PO DAILY for irregular heart, #90 TAB 3 Refills 06/14/19 Allopurinol (ALLOPURINOL) 300 Mg Tablet, 1 TAB PO DAILY for gout, #90 TAB 3 Refills 06/14/19 ASHANTI TARIQ MD Jun 16, 2019 10:09
--- NOTE | 2019-06-16 10:13 | PDOC ---
PROGRESS NOTES Chief Complaint Chief Complaint Acute type II C2 Odontoid fracture. FAll from stairs History of Present Illness History of Present Illness NO complaints 'Transferred from ICU/tele floor Neuro intact Needs c collar x 3 weeks per neuro sx note Cervical xrays week of 06/19/19- per neurosx Cleared for home by pT - no PT needs SOn trying to get patient into [facility] - patient relays this info to me too PLAN: Await neurosx rounds, do i dc? or keep over weekend for the cervical xrays next week? - frandy Dial and WENDY traylor Rx on chart AMbulate CAn eat Cervical collar x 3 weeks at least Vitals Vitals Vital Signs Date Time Temp Pulse Resp B/P (MAP) Pulse Ox O2 Delivery O2 Flow Rate FiO2 06/16/19 08:33 77 131/61 06/16/19 08:32 99 Room Air 06/16/19 07:00 97.8 16 97.8 Physical Exam General: Alert, Oriented X3, Cooperative Heart: Regular rate, Normal S1, Normal S2, No murmurs Lungs: Clear Abdomen: Normal bowel sounds, Soft, No tenderness, No hepatosplenomegaly Extremities: No cyanosis, No edema, Normal pulses Skin: No breakdown, No significant lesion Review of Systems Review of Systems neck pain, no headache, BOV, dizzy etc Assessment and Plan Assessmemt and Plan Problems Medical Problems: (1) Fall down steps Status: Acute (2) Odontoid fracture with type III morphology Status: Acute Comment Review of Relevant I have reviewed the following items arjun (where applicable) has been applied. Labs Laboratory Tests Test 06/14/19 15:38 06/15/19 08:35 White Blood Count 6.7 x10^3/uL (4.0-11.0) Red Blood Count 3.78 x10^6/uL (4.30-5.70) Hemoglobin 13.6 g/dL (13.0-17.5) Hematocrit 39.8 % (39.0-53.0) Mean Corpuscular Volume 105 fL (79-100) Mean Corpuscular Hemoglobin 36 pg (25-35) Mean Corpuscular Hemoglobin Concent 34 g/dL (31-37) Red Cell Distribution Width 13.7 % (11.5-14.5) Platelet Count 116 x10^3/uL (140-400) Neutrophils (%) (Auto) 75 % (31-73) Lymphocytes (%) (Auto) 16 % (24-48) Monocytes (%) (Auto) 8 % (0-9) Eosinophils (%) (Auto) 0 % (0-3) Basophils (%) (Auto) 1 % (0-3) Neutrophils # (Auto) 5.0 x10^3/uL (1.8-7.7) Lymphocytes # (Auto) 1.1 x10^3/uL (1.0-4.8) Monocytes # (Auto) 0.6 x10^3/uL (0.0-1.1) Eosinophils # (Auto) 0.0 x10^3/uL (0.0-0.7) Basophils # (Auto) 0.0 x10^3/uL (0.0-0.2) Prothrombin Time 19.6 SEC (11.7-14.0) Prothromb Time International Ratio 1.7 (0.8-1.1) Activated Partial Thromboplast Time 46 SEC (24-38) Sodium Level 140 mmol/L (136-145) 139 mmol/L (136-145) Potassium Level 5.0 mmol/L (3.5-5.1) 4.2 mmol/L (3.5-5.1) Chloride Level 104 mmol/L (98-107) 105 mmol/L (98-107) Carbon Dioxide Level 26 mmol/L (21-32) 26 mmol/L (21-32) Anion Gap 10 (6-14) 8 (6-14) Blood Urea Nitrogen 22 mg/dL (8-26) 22 mg/dL (8-26) Creatinine 1.4 mg/dL (0.7-1.3) 1.3 mg/dL (0.7-1.3) Estimated GFR (Cockcroft-Gault) 49.0 53.4 BUN/Creatinine Ratio 16 (6-20) Glucose Level 104 mg/dL (70-99) 104 mg/dL (70-99) Calcium Level 8.7 mg/dL (8.5-10.1) 8.5 mg/dL (8.5-10.1) Magnesium Level 1.3 mg/dL (1.8-2.4) 1.7 mg/dL (1.8-2.4) Total Bilirubin 1.2 mg/dL (0.2-1.0) Aspartate Amino Transf (AST/SGOT) 48 U/L (15-37) Alanine Aminotransferase (ALT/SGPT) 43 U/L (16-63) Alkaline Phosphatase 88 U/L (46-116) Total Protein 8.2 g/dL (6.4-8.2) Albumin 3.4 g/dL (3.4-5.0) Albumin/Globulin Ratio 0.7 (1.0-1.7) Ethyl Alcohol Level < 10 mg/dL (0-10) Medications Current Medications Metoprolol Tartrate (Lopressor) 50 mg 1X ONCE PO Last administered on 06/14/19 18:04; Start 06/14/19 at 15:45; Stop 06/14/19 at 15:46; Status DC Magnesium Sulfate 50 ml @ 25 mls/hr 1X ONCE IV Last administered on 06/14/19 18:04; Start 06/14/19 at 18:00; Stop 06/14/19 at 19:59; Status DC Acetaminophen/ Hydrocodone Bitart (Lortab 5/325) 1 tab PRN Q4HRS PRN PO PAIN Last administered on 06/16/19 08:32; Start 06/14/19 at 17:30 Morphine Sulfate (Morphine Sulfate) 4 mg PRN Q4HRS PRN IV PAIN; Start 06/14/19 at 17:30 Allopurinol (Zyloprim) 300 mg DAILY PO Last administered on 06/16/19 08:33; Start 06/15/19 at 11:00 Amiodarone HCl (Cordarone) 200 mg DAILY PO Last administered on 06/16/19 08:33; Start 06/15/19 at 11:00 Atorvastatin Calcium (Lipitor) 40 mg DAILY PO ; Start 06/15/19 at 11:00; Stop 06/15/19 at 10:37; Status DC Vitamin D (Vitamin D3) 1,000 unit DAILY PO Last administered on 06/16/19 08:33; Start 06/15/19 at 11:00 Levothyroxine Sodium (Synthroid) 150 mcg DAILY06 PO Last administered on 06/16/19 05:50; Start 06/15/19 at 11:00 Tamsulosin HCl (Flomax) 0.4 mg DAILY PO ; Start 06/15/19 at 11:00; Stop 06/15/19 at 10:37; Status DC Ferrous Sulfate (Feosol) 325 mg DAILYWBKFT PO Last administered on 06/16/19 08:33; Start 06/15/19 at 12:00 Magnesium Oxide (Magnesium Oxide) 400 mg DAILY PO Last administered on 06/16/19 08:33; Start 06/15/19 at 11:00 Metoprolol Succinate (Toprol Xl) 200 mg DAILY PO Last administered on 06/16/19 08:32; Start 06/15/19 at 11:00 Fish Oil (Fish Oil) 1,000 mg DAILY PO Last administered on 06/16/19 08:33; Start 06/15/19 at 11:00 Sotalol HCl (Betapace) 160 mg DAILY PO ; Start 06/15/19 at 11:00; Status Cancel Non-Formulary Medication (Ubidecarenone (Co Q-10)) 1 cap DAILY PO ; Start 06/16/19 at 09:00; Status UNV Atorvastatin Calcium (Lipitor) 40 mg HS PO Last administered on 06/15/19at 21:00; Start 06/15/19 at 21:00 Tamsulosin HCl (Flomax) 0.4 mg HS PO Last administered on 06/15/19at 20:59; Start 06/15/19 at 21:00 Dabigatran (Pradaxa) 150 mg BID PO Last administered on 06/16/19 08:33; Start 06/15/19 at 11:30 Info (Anti-Coagulation Monitoring By Pharmacy) 1 each PRN DAILY PRN [facility] SEE COMMENTS; Start 06/15/19 at 11:30 Acetaminophen (Tylenol) 500 mg PRN Q6HRS PRN PO MILD PAIN / TEMP; Start 06/16/19 at 08:30 Ondansetron HCl (Zofran) 4 mg PRN Q6HRS PRN IVP NAUSEA/VOMITING; Start 06/16/19 at 08:30 Active Scripts Active Hydrocodone-Apap 5-325 (Hydrocodone Bit/Acetaminophen) 1 Tab Tablet 1 Tab PO PRN Q4HRS PRN Reported Magnesium (Magnesium Oxide) 400 Mg Capsule 1 Cap PO DAILY 30 Days Metoprolol Succinate ( Xl ) (Metoprolol Succinate) 200 Mg Tab.er.24h 1 Tab PO DAILY Ferrous Gluconate 324 Mg Tablet 324 Mg PO DAILY Flomax (Tamsulosin Hcl) 0.4 Mg Cap.er.24h 1 Cap PO HS Vitamin D3 (Cholecalciferol (Vitamin D3)) 1,000 Unit Tablet 1 Tab PO DAILY Co Q-10 (Ubidecarenone) 200 Mg Capsule 1 Cap PO DAILY 30 Days [place] 3 Fish Oil Softgel ([place]-3 Fatty Acids/Fish Oil) 1 Each Capsule.dr 1 Each PO DAILY Pradaxa (Dabigatran Etexilate Mesylate) 150 Mg Capsule 1 Cap PO BID Levothyroxine Sodium 150 Mcg Tablet 1 Tab PO DAILY Atorvastatin Calcium 40 Mg Tablet 1 Tab PO HS Amiodarone Hcl 200 Mg Tablet 1 Tab PO DAILY Allopurinol 300 Mg Tablet 1 Tab PO DAILY Vitals/I & O Vital Sign - Last 24 Hours 06/15/19 06/15/19 06/15/19 06/15/19 10:19 10:20 11:00 11:33 Pulse 69 69 68 Resp 10 B/P (MAP) 155/84 155/84 148/82 (104) Pulse Ox 95 O2 Delivery Room Air Room Air 06/15/19 06/15/19 06/15/19 06/15/19 14:00 16:19 17:23 19:00 Temp 97.4 97.4 97.4 97.4 Pulse 70 66 Resp 18 18 B/P (MAP) 128/68 (88) 165/78 (107) Pulse Ox 97 97 97 100 O2 Delivery Room Air Room Air Room Air Room Air 06/15/19 06/15/19 06/15/19 06/16/19 19:15 20:00 22:38 01:02 Temp 98.5 98.5 Pulse 66 Resp 18 B/P (MAP) 134/73 (93) Pulse Ox 98 O2 Delivery Room Air Room Air Room Air Room Air 06/16/19 06/16/19 06/16/19 06/16/19 02:02 03:15 07:00 08:32 Temp 98.0 97.8 98.0 97.8 Pulse 73 77 Resp 18 16 B/P (MAP) 119/56 (77) 131/61 (84) Pulse Ox 95 99 99 O2 Delivery Room Air Room Air Room Air Room Air 06/16/19 06/16/19 08:32 08:33 Pulse 77 77 B/P (MAP) 131/61 131/61 Intake and Output 06/15/19 06/15/19 06/16/19 15:00 23:00 07:00 Intake Total 350 ml 140 ml Output Total 300 ml 200 ml 150 ml Balance -300 ml 150 ml -10 ml ASHANTI TARIQ MD Jun 16, 2019 10:12
[2019-06-16 11:00] VITALS: BP 92/53
--- NOTE | 2019-06-16 11:32 | PDOC3 ---
Discharge Summary Visit Information Date of Admission: Jun 14, 2019 Date of Discharge: Jun 16, 2019 Admitting Diagnosis Comment: Acute type II C2 Odontoid fracture. FAll from stairs Final Diagnosis Problems Medical Problems: (1) Fall down steps Status: Acute (2) Odontoid fracture with type III morphology Status: Acute Brief Hospital Course Allergies Allergies Coded Allergies Type Severity Reaction Last Updated Verified No Known Drug Allergies 06/14/19 No Vital Signs Vital Signs Date Time Temp Pulse Resp B/P (MAP) Pulse Ox O2 Delivery O2 Flow Rate FiO2 06/16/19 08:33 77 131/61 06/16/19 08:32 99 Room Air 06/16/19 07:00 97.8 16 97.8 Lab Results Laboratory Tests Test 06/14/19 15:38 06/15/19 08:35 White Blood Count 6.7 x10^3/uL (4.0-11.0) Red Blood Count 3.78 x10^6/uL (4.30-5.70) Hemoglobin 13.6 g/dL (13.0-17.5) Hematocrit 39.8 % (39.0-53.0) Mean Corpuscular Volume 105 fL (79-100) Mean Corpuscular Hemoglobin 36 pg (25-35) Mean Corpuscular Hemoglobin Concent 34 g/dL (31-37) Red Cell Distribution Width 13.7 % (11.5-14.5) Platelet Count 116 x10^3/uL (140-400) Neutrophils (%) (Auto) 75 % (31-73) Lymphocytes (%) (Auto) 16 % (24-48) Monocytes (%) (Auto) 8 % (0-9) Eosinophils (%) (Auto) 0 % (0-3) Basophils (%) (Auto) 1 % (0-3) Neutrophils # (Auto) 5.0 x10^3/uL (1.8-7.7) Lymphocytes # (Auto) 1.1 x10^3/uL (1.0-4.8) Monocytes # (Auto) 0.6 x10^3/uL (0.0-1.1) Eosinophils # (Auto) 0.0 x10^3/uL (0.0-0.7) Basophils # (Auto) 0.0 x10^3/uL (0.0-0.2) Prothrombin Time 19.6 SEC (11.7-14.0) Prothromb Time International Ratio 1.7 (0.8-1.1) Activated Partial Thromboplast Time 46 SEC (24-38) Sodium Level 140 mmol/L (136-145) 139 mmol/L (136-145) Potassium Level 5.0 mmol/L (3.5-5.1) 4.2 mmol/L (3.5-5.1) Chloride Level 104 mmol/L (98-107) 105 mmol/L (98-107) Carbon Dioxide Level 26 mmol/L (21-32) 26 mmol/L (21-32) Anion Gap 10 (6-14) 8 (6-14) Blood Urea Nitrogen 22 mg/dL (8-26) 22 mg/dL (8-26) Creatinine 1.4 mg/dL (0.7-1.3) 1.3 mg/dL (0.7-1.3) Estimated GFR (Cockcroft-Gault) 49.0 53.4 BUN/Creatinine Ratio 16 (6-20) Glucose Level 104 mg/dL (70-99) 104 mg/dL (70-99) Calcium Level 8.7 mg/dL (8.5-10.1) 8.5 mg/dL (8.5-10.1) Magnesium Level 1.3 mg/dL (1.8-2.4) 1.7 mg/dL (1.8-2.4) Total Bilirubin 1.2 mg/dL (0.2-1.0) Aspartate Amino Transf (AST/SGOT) 48 U/L (15-37) Alanine Aminotransferase (ALT/SGPT) 43 U/L (16-63) Alkaline Phosphatase 88 U/L (46-116) Total Protein 8.2 g/dL (6.4-8.2) Albumin 3.4 g/dL (3.4-5.0) Albumin/Globulin Ratio 0.7 (1.0-1.7) Ethyl Alcohol Level < 10 mg/dL (0-10) Brief Hospital Course Mr. Gomez is a 78 old white female who lives with an equally elderly , fell from stairs and suffered a C2 odontoid fx and needs cervical collar x 3 weeks and rpt C spine xrays next week. No immediate surgical plans per neurosx. he was admitted to icu first few days, HE is neurologically intact, did well with PT but son is trying to get him to [place]. If ok with neurosx, will dc home and order the c spine xrays for 2 notes today Dw CONRAD elise and WENDY traylor Discharge Information Condition at Discharge: Improved, Stable Disposition/Orders: D/C to Home Scheduled Allopurinol (Allopurinol) 300 Mg Tablet, 1 TAB PO DAILY for gout, #90 Ref 3 (Reported) Entered as Reported by: TINO CARPENTER on 06/14/191732 Last Action: Continued on 06/15/19955 by TINO CARPENTER Amiodarone Hcl (Amiodarone Hcl) 200 Mg Tablet, 1 TAB PO DAILY for irregular heart, #90 Ref 3 (Reported) Entered as Reported by: TINO CARPENTER on 06/14/191732 Last Action: Continued on 06/15/19955 by TINO CARPENTER Atorvastatin Calcium (Atorvastatin Calcium) 40 Mg Tablet, 1 TAB PO HS for cholesterol, #90 Ref 3 (Reported) Entered as Reported by: TINO CARPENTER on 06/14/191732 Last Action: Edited on 06/15/191038 by MADHU KULKARNI Cholecalciferol (Vitamin D3) (Vitamin D3) 1,000 Unit Tablet, 1 TAB PO DAILY for vit, #90 Ref 3 (Reported) Entered as Reported by: TINO CARPENTER on 06/14/191732 Last Action: Continued on 06/15/19955 by TINO CARPENTER Dabigatran Etexilate Mesylate (Pradaxa) 150 Mg Capsule, 1 CAP PO BID for thinner, #180 Ref 3 (Reported) Entered as Reported by: TINO CARPENTER on 06/14/191732 Last Action: Continued on 06/15/191120 by MADHU KULKARNI Ferrous Gluconate (Ferrous Gluconate) 324 Mg Tablet, 324 MG PO DAILY for iron, (Reported) Entered as Reported by: TINO CARPENTER on 06/14/191732 Last Action: Converted on 06/15/19955 by TINO CARPENTER Levothyroxine Sodium (Levothyroxine Sodium) 150 Mcg Tablet, 1 TAB PO DAILY for thyroid condition, #90 Ref 3 (Reported) Entered as Reported by: TINO CARPENTER on 11/6/19 1733 Last Action: Continued on 06/15/19955 by TINO CARPENTER Magnesium Oxide (Magnesium) 400 Mg Capsule, 1 CAP PO DAILY for rplacemenmt for 30 Days, #30 Ref 0 (Reported) Entered as Reported by: TINO CARPENTER on 06/14/191732 Last Action: Converted on 06/15/19955 by TINO CARPENTER Metoprolol Succinate (Metoprolol Succinate ( Xl )) 200 Mg Tab.er.24h, 1 TAB PO DAILY for beta blosker, #90 Ref 3 (Reported) Entered as Reported by: TINO CARPENTER on 06/14/191732 Last Action: Converted on 06/15/19955 by TINO CARPENTER [place]-3 Fatty Acids/Fish Oil ([place] 3 Fish Oil Softgel) 1 Each Capsule.dr, 1 EACH PO DAILY for fish oil, (Reported) Entered as Reported by: TINO CARPENTER on 06/14/191732 Last Action: Converted on 06/15/19955 by TINO CARPENTER Tamsulosin Hcl (Flomax) 0.4 Mg Cap.er.24h, 1 CAP PO HS for prostrate, #90 Ref 3 (Reported) Entered as Reported by: TINO CARPENTER on 06/14/191732 Last Action: Edited on 06/15/191038 by MADHU KULKARNI Ubidecarenone (Co Q-10) 200 Mg Capsule, 1 CAP PO DAILY for vit for 30 Days, #30 Ref 0 (Reported) Entered as Reported by: TINO CARPENTER on 06/14/191732 Last Action: Converted on 06/15/19955 by TINO CARPENTER Scheduled PRN Hydrocodone Bit/Acetaminophen (Hydrocodone-Apap 5-325 ) 1 Tab Tablet, 1 TAB PO PRN Q4HRS PRN for PAIN, #30 Prescribed by: ASHANTI TARIQ on 06/16/19 1007 ASHANTI TARIQ MD Jun 16, 2019 11:32
--- NOTE | 2019-06-16 14:03 | PDOC ---
PROGRESS NOTES Subjective Subjective sitting up in bed pain slowly improving Objective Objective Vital Signs Date Time Temp Pulse Resp B/P (MAP) Pulse Ox O2 Delivery O2 Flow Rate FiO2 06/16/19 13:14 98 Room Air 06/16/19 11:00 97.8 69 16 92/53 (66) 97.8 Intake and Output 06/16/19 07:00 Intake Total 490 ml Output Total 650 ml Balance -160 ml Intake Oral 490 ml Output Urine Total 650 ml Physical Exam General: Alert, Oriented X3, Cooperative MUSCULOSKELETAL: Other (cervical collar on) Neuro: Normal speech, Strength at 5/5 X4 ext Assessment Assessment Problems Medical Problems: (1) Fall down steps Status: Acute (2) Odontoid fracture with type III morphology Status: Acute Plan Plan of Care may dc from NS standpoint will have x rays in 1 weeks Comment Review of Relevant I have reviewed the following items arjun (where applicable) has been applied. Labs Laboratory Tests Test 06/14/19 15:38 06/15/19 08:35 White Blood Count 6.7 x10^3/uL (4.0-11.0) Red Blood Count 3.78 x10^6/uL (4.30-5.70) Hemoglobin 13.6 g/dL (13.0-17.5) Hematocrit 39.8 % (39.0-53.0) Mean Corpuscular Volume 105 fL (79-100) Mean Corpuscular Hemoglobin 36 pg (25-35) Mean Corpuscular Hemoglobin Concent 34 g/dL (31-37) Red Cell Distribution Width 13.7 % (11.5-14.5) Platelet Count 116 x10^3/uL (140-400) Neutrophils (%) (Auto) 75 % (31-73) Lymphocytes (%) (Auto) 16 % (24-48) Monocytes (%) (Auto) 8 % (0-9) Eosinophils (%) (Auto) 0 % (0-3) Basophils (%) (Auto) 1 % (0-3) Neutrophils # (Auto) 5.0 x10^3/uL (1.8-7.7) Lymphocytes # (Auto) 1.1 x10^3/uL (1.0-4.8) Monocytes # (Auto) 0.6 x10^3/uL (0.0-1.1) Eosinophils # (Auto) 0.0 x10^3/uL (0.0-0.7) Basophils # (Auto) 0.0 x10^3/uL (0.0-0.2) Prothrombin Time 19.6 SEC (11.7-14.0) Prothromb Time International Ratio 1.7 (0.8-1.1) Activated Partial Thromboplast Time 46 SEC (24-38) Sodium Level 140 mmol/L (136-145) 139 mmol/L (136-145) Potassium Level 5.0 mmol/L (3.5-5.1) 4.2 mmol/L (3.5-5.1) Chloride Level 104 mmol/L (98-107) 105 mmol/L (98-107) Carbon Dioxide Level 26 mmol/L (21-32) 26 mmol/L (21-32) Anion Gap 10 (6-14) 8 (6-14) Blood Urea Nitrogen 22 mg/dL (8-26) 22 mg/dL (8-26) Creatinine 1.4 mg/dL (0.7-1.3) 1.3 mg/dL (0.7-1.3) Estimated GFR (Cockcroft-Gault) 49.0 53.4 BUN/Creatinine Ratio 16 (6-20) Glucose Level 104 mg/dL (70-99) 104 mg/dL (70-99) Calcium Level 8.7 mg/dL (8.5-10.1) 8.5 mg/dL (8.5-10.1) Magnesium Level 1.3 mg/dL (1.8-2.4) 1.7 mg/dL (1.8-2.4) Total Bilirubin 1.2 mg/dL (0.2-1.0) Aspartate Amino Transf (AST/SGOT) 48 U/L (15-37) Alanine Aminotransferase (ALT/SGPT) 43 U/L (16-63) Alkaline Phosphatase 88 U/L (46-116) Total Protein 8.2 g/dL (6.4-8.2) Albumin 3.4 g/dL (3.4-5.0) Albumin/Globulin Ratio 0.7 (1.0-1.7) Ethyl Alcohol Level < 10 mg/dL (0-10) Medications Current Medications Metoprolol Tartrate (Lopressor) 50 mg 1X ONCE PO Last administered on 06/14/19 18:04; Start 06/14/19 at 15:45; Stop 06/14/19 at 15:46; Status DC Magnesium Sulfate 50 ml @ 25 mls/hr 1X ONCE IV Last administered on 06/14/19 18:04; Start 06/14/19 at 18:00; Stop 06/14/19 at 19:59; Status DC Acetaminophen/ Hydrocodone Bitart (Lortab 5/325) 1 tab PRN Q4HRS PRN PO PAIN Last administered on 06/16/19 08:32; Start 06/14/19 at 17:30 Morphine Sulfate (Morphine Sulfate) 4 mg PRN Q4HRS PRN IV PAIN; Start 06/14/19 at 17:30 Allopurinol (Zyloprim) 300 mg DAILY PO Last administered on 06/16/19 08:33; Start 06/15/19 at 11:00 Amiodarone HCl (Cordarone) 200 mg DAILY PO Last administered on 06/16/19 08:33; Start 06/15/19 at 11:00 Atorvastatin Calcium (Lipitor) 40 mg DAILY PO ; Start 06/15/19 at 11:00; Stop 06/15/19 at 10:37; Status DC Vitamin D (Vitamin D3) 1,000 unit DAILY PO Last administered on 06/16/19 08:33; Start 06/15/19 at 11:00 Levothyroxine Sodium (Synthroid) 150 mcg DAILY06 PO Last administered on 06/16/19 05:50; Start 06/15/19 at 11:00 Tamsulosin HCl (Flomax) 0.4 mg DAILY PO ; Start 06/15/19 at 11:00; Stop 06/15/19 at 10:37; Status DC Ferrous Sulfate (Feosol) 325 mg DAILYWBKFT PO Last administered on 06/16/19 08:33; Start 06/15/19 at 12:00 Magnesium Oxide (Magnesium Oxide) 400 mg DAILY PO Last administered on 06/16/19 08:33; Start 06/15/19 at 11:00 Metoprolol Succinate (Toprol Xl) 200 mg DAILY PO Last administered on 06/16/19 08:32; Start 06/15/19 at 11:00 Fish Oil (Fish Oil) 1,000 mg DAILY PO Last administered on 06/16/19at 08:33; Start 06/15/19 at 11:00 Sotalol HCl (Betapace) 160 mg DAILY PO ; Start 06/15/19 at 11:00; Status Cancel Non-Formulary Medication (Ubidecarenone (Co Q-10)) 1 cap DAILY PO ; Start 06/16/19 at 09:00; Status UNV Atorvastatin Calcium (Lipitor) 40 mg HS PO Last administered on 06/15/19at 21:00; Start 06/15/19 at 21:00 Tamsulosin HCl (Flomax) 0.4 mg HS PO Last administered on 06/15/19at 20:59; Start 06/15/19 at 21:00 Dabigatran (Pradaxa) 150 mg BID PO Last administered on 06/16/19at 08:33; Start 06/15/19 at 11:30 Info (Anti-Coagulation Monitoring By Pharmacy) 1 each PRN DAILY PRN [facility] SEE COMMENTS; Start 06/15/19 at 11:30 Acetaminophen (Tylenol) 500 mg PRN Q6HRS PRN PO MILD PAIN / TEMP; Start 06/16/19 at 08:30 Ondansetron HCl (Zofran) 4 mg PRN Q6HRS PRN IVP NAUSEA/VOMITING; Start 06/16/19 at 08:30 Active Scripts Active Hydrocodone-Apap 5-325 (Hydrocodone Bit/Acetaminophen) 1 Tab Tablet 1 Tab PO PRN Q4HRS PRN Reported Magnesium (Magnesium Oxide) 400 Mg Capsule 1 Cap PO DAILY 30 Days Metoprolol Succinate ( Xl ) (Metoprolol Succinate) 200 Mg Tab.er.24h 1 Tab PO DAILY Ferrous Gluconate 324 Mg Tablet 324 Mg PO DAILY Flomax (Tamsulosin Hcl) 0.4 Mg Cap.er.24h 1 Cap PO HS Vitamin D3 (Cholecalciferol (Vitamin D3)) 1,000 Unit Tablet 1 Tab PO DAILY Co Q-10 (Ubidecarenone) 200 Mg Capsule 1 Cap PO DAILY 30 Days [place] 3 Fish Oil Softgel ([place]-3 Fatty Acids/Fish Oil) 1 Each Capsule.dr 1 Each PO DAILY Pradaxa (Dabigatran Etexilate Mesylate) 150 Mg Capsule 1 Cap PO BID Levothyroxine Sodium 150 Mcg Tablet 1 Tab PO DAILY Atorvastatin Calcium 40 Mg Tablet 1 Tab PO HS Amiodarone Hcl 200 Mg Tablet 1 Tab PO DAILY Allopurinol 300 Mg Tablet 1 Tab PO DAILY Vitals/I & O Vital Sign - Last 24 Hours 06/15/19 06/15/19 06/15/19 06/15/19 16:19 17:23 19:00 19:15 Temp 97.4 97.4 Pulse 66 Resp 18 B/P (MAP) 165/78 (107) Pulse Ox 97 97 100 O2 Delivery Room Air Room Air Room Air Room Air 06/15/19 06/15/19 06/16/19 06/16/19 20:00 22:38 01:02 02:02 Temp 98.5 98.5 Pulse 66 Resp 18 B/P (MAP) 134/73 (93) Pulse Ox 98 O2 Delivery Room Air Room Air Room Air Room Air 06/16/19 06/16/19 06/16/19 06/16/19 03:15 07:00 08:00 08:32 Temp 98.0 97.8 98.0 97.8 Pulse 73 77 Resp 18 16 B/P (MAP) 119/56 (77) 131/61 (84) Pulse Ox 95 99 99 O2 Delivery Room Air Room Air Room Air Room Air 06/16/19 06/16/19 06/16/19 06/16/19 08:32 08:33 11:00 13:14 Temp 97.8 97.8 Pulse 77 77 69 Resp 16 B/P (MAP) 131/61 131/61 92/53 (66) Pulse Ox 98 98 O2 Delivery Room Air Room Air Intake and Output 06/15/19 06/15/19 06/16/19 15:00 23:00 07:00 Intake Total 350 ml 140 ml Output Total 300 ml 200 ml 150 ml Balance -300 ml 150 ml -10 ml KORINA VIEYRA APRN Jun 16, 2019 14:03
--- NOTE | 2019-06-16 14:19 | NUR ---
WENDY following for discharge planning. Chart reviewed, discussed with RN. Pt is from home with . Pt's son is in town and is working on getting pt into an assisted living facility. PT/OT recommending assisted living/ home independent. RN advised no SW needs at this time, as pt's son is handling everything. WENDY will continue to follow should any discharge planning needs arise. Addendum: 06/16/19 at 1549 by DENISHA NGUYEN WENDY following. Deisi from [facility] in [facility] contacted WENDY to get fax number to send physician eval form for the doctor to complete and sign for pt to be able to be admitted into their assisted living. WENDY provided to RN.
[2019-06-16 15:00] VITALS: BP 150/71
[2019-06-16 19:20] VITALS: BP 147/65
[2019-06-16] MEDS: TAMSULOSIN 0.4 MG CAP.ER.24H. PO SCH (20:57)
[2019-06-16] MEDS: ATORVASTATIN CALCIUM 40 MG TABLET. PO SCH (20:57)
[2019-06-16 23:05] VITALS: BP 148/78
[2019-06-17 03:20] VITALS: BP 146/79
[2019-06-17 07:00] VITALS: BP 67/46
[2019-06-17] MEDS: FERROUS SULFATE 325 MG TABLET. PO SCH (08:29)
[2019-06-17] MEDS: ALLOPURINOL 300 MG TABLET. PO SCH (08:30)
[2019-06-17] MEDS: OMEGA-3 FATTY ACIDS/FISH OIL 1,000 MG CAPSULE. PO SCH (08:30)
[2019-06-17] MEDS: DABIGATRAN ETEXILATE 150 MG CAPSULE. PO SCH ×2 (08:30→20:19)
[2019-06-17] MEDS: HYDROcodone/APAP 5/325MG 1 TAB TABLET PO PRN ×3 (08:31→17:37)
[2019-06-17] MEDS: LEVOTHYROXINE 150 MCG TABLET PO SCH (08:31)
[2019-06-17] MEDS: CHOLECALCIFEROL (VITAMIN D3) 1,000 UNIT TABLET PO SCH (08:31)
[2019-06-17] MEDS: MAGNESIUM OXIDE 400 MG TABLET PO SCH (08:31)
[2019-06-17] MEDS: METOPROLOL SUCC 24HR ER 100 MG TAB.ER.24H. PO SCH (09:00)
[2019-06-17] MEDS: AMIODARONE HCL 200 MG TABLET. PO SCH (09:00)
--- NOTE | 2019-06-17 10:15 | PDOC ---
PROGRESS NOTES Chief Complaint Chief Complaint Acute type II C2 Odontoid fracture. FAll from stairs GEn weakness - AL slated wednesday History of Present Illness History of Present Illness AL unable to take wednesday and weekend so will be here till Wednesday PAin is ok NEeds leonardo c collar x 3 weeks CERvical spine xrays again week of 06/19 per NS sx NO surgical intervention needed as of yet CLeared from PT, no pT needs AL is being done by son (not SW) PLAN: SInce he will be here till wednesday, might as well order the cervical spine xrays wednesday Keep current pain regimen - working for him C collar at all times pls dw him Vitals Vitals Vital Signs Date Time Temp Pulse Resp B/P (MAP) Pulse Ox O2 Delivery O2 Flow Rate FiO2 06/17/19 08:31 20 Room Air 06/17/19 07:00 98.1 71 67/46 (53) 97 98.1 Physical Exam General: Alert, Oriented X3, Cooperative Heart: Regular rate, Normal S1, Normal S2, No murmurs Lungs: Clear Abdomen: Normal bowel sounds, Soft, No tenderness, No hepatosplenomegaly Extremities: No cyanosis, No edema, Normal pulses Skin: No breakdown, No significant lesion Review of Systems Review of Systems stable neck pain,. all else neg Assessment and Plan Assessmemt and Plan Problems Medical Problems: (1) Fall down steps Status: Acute (2) Odontoid fracture with type III morphology Status: Acute Comment Review of Relevant I have reviewed the following items arjun (where applicable) has been applied. Medications Current Medications Metoprolol Tartrate (Lopressor) 50 mg 1X ONCE PO Last administered on 06/14/19at 18:04; Start 06/14/19 at 15:45; Stop 06/14/19 at 15:46; Status DC Magnesium Sulfate 50 ml @ 25 mls/hr 1X ONCE IV Last administered on 06/14/19at 18:04; Start 06/14/19 at 18:00; Stop 06/14/19 at 19:59; Status DC Acetaminophen/ Hydrocodone Bitart (Lortab 5/325) 1 tab PRN Q4HRS PRN PO PAIN Last administered on 06/17/19at 08:31; Start 06/14/19 at 17:30 Morphine Sulfate (Morphine Sulfate) 4 mg PRN Q4HRS PRN IV PAIN; Start 06/14/19 at 17:30 Allopurinol (Zyloprim) 300 mg DAILY PO Last administered on 06/17/19 08:30; Start 06/15/19 at 11:00 Amiodarone HCl (Cordarone) 200 mg DAILY PO Last administered on 06/16/19 0 8:33; Start 06/15/19 at 11:00 Atorvastatin Calcium (Lipitor) 40 mg DAILY PO ; Start 06/15/19 at 11:00; Stop 06/15/19 at 10:37; Status DC Vitamin D (Vitamin D3) 1,000 unit DAILY PO Last administered on 06/17/19 08:31; Start 06/15/19 at 11:00 Levothyroxine Sodium (Synthroid) 150 mcg DAILY06 PO Last administered on 06/17/19 08:31; Start 06/15/19 at 11:00 Tamsulosin HCl (Flomax) 0.4 mg DAILY PO ; Start 06/15/19 at 11:00; Stop 06/15/19 at 10:37; Status DC Ferrous Sulfate (Feosol) 325 mg DAILYWBKFT PO Last administered on 06/17/19 08:29; Start 06/15/19 at 12:00 Magnesium Oxide (Magnesium Oxide) 400 mg DAILY PO Last administered on 06/17/19 08:31; Start 06/15/19 at 11:00 Metoprolol Succinate (Toprol Xl) 200 mg DAILY PO Last administered on 06/16/19 08:32; Start 06/15/19 at 11:00 Fish Oil (Fish Oil) 1,000 mg DAILY PO Last administered on 06/17/19 08:30; Start 06/15/19 at 11:00 Sotalol HCl (Betapace) 160 mg DAILY PO ; Start 06/15/19 at 11:00; Status Cancel Non-Formulary Medication (Ubidecarenone (Co Q-10)) 1 cap DAILY PO ; Start 06/16/19 at 09:00; Status UNV Atorvastatin Calcium (Lipitor) 40 mg HS PO Last administered on 06/16/19 20:57; Start 06/15/19 at 21:00 Tamsulosin HCl (Flomax) 0.4 mg HS PO Last administered on 06/16/19 20:57; Start 06/15/19 at 21:00 Dabigatran (Pradaxa) 150 mg BID PO Last administered on 06/17/19at 08:30; Start 06/15/19 at 11:30 Info (Anti-Coagulation Monitoring By Pharmacy) 1 each PRN DAILY PRN MC SEE COMMENTS; Start 06/15/19 at 11:30 Acetaminophen (Tylenol) 500 mg PRN Q6HRS PRN PO MILD PAIN / TEMP; Start 06/16/19 at 08:30 Ondansetron HCl (Zofran) 4 mg PRN Q6HRS PRN IVP NAUSEA/VOMITING; Start 06/16/19 at 08:30 Active Scripts Active Hydrocodone-Apap 5-325 (Hydrocodone Bit/Acetaminophen) 1 Tab Tablet 1 Tab PO PRN Q4HRS PRN Reported Magnesium (Magnesium Oxide) 400 Mg Capsule 1 Cap PO DAILY 30 Days Metoprolol Succinate ( Xl ) (Metoprolol Succinate) 200 Mg Tab.er.24h 1 Tab PO DAILY Ferrous Gluconate 324 Mg Tablet 324 Mg PO DAILY Flomax (Tamsulosin Hcl) 0.4 Mg Cap.er.24h 1 Cap PO HS Vitamin D3 (Cholecalciferol (Vitamin D3)) 1,000 Unit Tablet 1 Tab PO DAILY Co Q-10 (Ubidecarenone) 200 Mg Capsule 1 Cap PO DAILY 30 Days [place] 3 Fish Oil Softgel ([place]-3 Fatty Acids/Fish Oil) 1 Each Capsule.dr 1 Each PO DAILY Pradaxa (Dabigatran Etexilate Mesylate) 150 Mg Capsule 1 Cap PO BID Levothyroxine Sodium 150 Mcg Tablet 1 Tab PO DAILY Atorvastatin Calcium 40 Mg Tablet 1 Tab PO HS Amiodarone Hcl 200 Mg Tablet 1 Tab PO DAILY Allopurinol 300 Mg Tablet 1 Tab PO DAILY Vitals/I & O Vital Sign - Last 24 Hours 06/16/19 06/16/19 06/16/19 06/16/19 11:00 13:14 14:08 15:00 Temp 97.8 97.7 97.8 97.7 Pulse 69 71 Resp 16 18 B/P (MAP) 92/53 (66) 150/71 (97) Pulse Ox 98 98 98 95 O2 Delivery Room Air Room Air Room Air Room Air 06/16/19 06/16/19 06/16/19 06/16/19 16:43 19:20 19:48 20:00 Temp 98.3 98.3 Pulse 66 Resp 18 18 B/P (MAP) 147/65 (92) Pulse Ox 95 96 O2 Delivery Room Air Room Air Room Air 06/16/19 06/17/19 06/17/19 06/17/19 23:05 03:20 07:00 08:00 Temp 97.8 97.8 98.1 97.8 97.8 98.1 Pulse 72 71 71 Resp 16 18 18 B/P (MAP) 148/78 (101) 146/79 (101) 67/46 (53) Pulse Ox 100 98 97 O2 Delivery Room Air Room Air Room Air Room Air 06/17/19 08:31 Resp 20 O2 Delivery Room Air Intake and Output 06/16/19 06/16/19 06/17/19 15:00 23:00 07:00 Intake Total 360 ml Output Total 600 ml Balance -240 ml ASHANTI TARIQ MD Jun 17, 2019 10:14
[2019-06-17 11:00] VITALS: BP 105/58
[2019-06-17 15:00] VITALS: BP 145/75
[2019-06-17 19:00] VITALS: BP 143/59
[2019-06-17] MEDS: ATORVASTATIN CALCIUM 40 MG TABLET. PO SCH (20:19)
[2019-06-17] MEDS: TAMSULOSIN 0.4 MG CAP.ER.24H. PO SCH (20:19)
[2019-06-17] MEDS: HYDROcodone/APAP 7.5/325MG 1 TAB TABLET PO PRN (21:33)
[2019-06-17 23:00] VITALS: BP 147/78
[2019-06-18] MEDS: HYDROcodone/APAP 7.5/325MG 1 TAB TABLET PO PRN ×4 (01:20→20:03)
[2019-06-18 03:00] VITALS: BP 93/54
[2019-06-18] MEDS: LEVOTHYROXINE 150 MCG TABLET PO SCH (05:24)
[2019-06-18 07:59] VITALS: BP 104/76
[2019-06-18] MEDS: METOPROLOL SUCC 24HR ER 100 MG TAB.ER.24H. PO SCH (09:00)
--- NOTE | 2019-06-18 10:03 | PDOC ---
PROGRESS NOTES Chief Complaint Chief Complaint Acute type II C2 Odontoid fracture. FAll from stairs GEn weakness - AL slated wednesday History of Present Illness History of Present Illness AL unable to take wednesday and so will be here till Wednesday PAin is ok NEeds the c collar x 6 weeks per neuro sx per patient relay CERvical spine xrays again week of 06/19 per NS sx NO surgical intervention needed as of yet CLeared from PT, no pT needs AL is being done by son (not SW) PLAN: SInce he will be here till wednesday, might as well order the cervical spine xrays wednesday - NS can cancel this if they think it is too early? HE had questions on how to shower the rigid cervical collar Keep current pain regimen - working for him C collar at all times pls dw him and aide at bedside Vitals Vitals Vital Signs Date Time Temp Pulse Resp B/P (MAP) Pulse Ox O2 Delivery O2 Flow Rate FiO2 06/18/19 07:59 97.4 69 18 104/76 (85) 98 Room Air 97.4 Physical Exam General: Alert, Oriented X3, Cooperative Heart: Regular rate, Normal S1, Normal S2, No murmurs Lungs: Clear Abdomen: Normal bowel sounds, Soft, No tenderness, No hepatosplenomegaly Extremities: No cyanosis, No edema, Normal pulses Skin: No breakdown, No significant lesion Review of Systems Review of Systems stable neck pain, all else 14 pt neg Assessment and Plan Assessmemt and Plan Problems Medical Problems: (1) Fall down steps Status: Acute (2) Odontoid fracture with type III morphology Status: Acute Comment Review of Relevant I have reviewed the following items arjun (where applicable) has been applied. Medications Current Medications Metoprolol Tartrate (Lopressor) 50 mg 1X ONCE PO Last administered on 06/14/19at 18:04; Start 06/14/19 at 15:45; Stop 06/14/19 at 15:46; Status DC Magnesium Sulfate 50 ml @ 25 mls/hr 1X ONCE IV Last administered on 06/14/19at 18:04; Start 06/14/19 at 18:00; Stop 06/14/19 at 19:59; Status DC Acetaminophen/ Hydrocodone Bitart (Lortab 5/325) 1 tab PRN Q4HRS PRN PO MODERATE TO SEVERE PAIN Last administered on 06/17/19at 17:37; Start 06/14/19 at 17:30; Stop 06/17/19 at 20:55; Status DC Morphine Sulfate (Morphine Sulfate) 4 mg PRN Q4HRS PRN IV PAIN; Start 06/14/19 at 17:30; Stop 06/17/19 at 20:54; Status DC Allopurinol (Zyloprim) 300 mg DAILY PO Last administered on 06/17/19 08:30; Start 06/15/19 at 11:00 Amiodarone HCl (Cordarone) 200 mg DAILY PO Last administered on 06/16/19at 08:33; Start 06/15/19 at 11:00 Atorvastatin Calcium (Lipitor) 40 mg DAILY PO ; Start 06/15/19 at 11:00; Stop 06/15/19 at 10:37; Status DC Vitamin D (Vitamin D3) 1,000 unit DAILY PO Last administered on 06/17/19 08:31; Start 06/15/19 at 11:00 Levothyroxine Sodium (Synthroid) 150 mcg DAILY06 PO Last administered on 06/18/19at 05:24; Start 06/15/19 at 11:00 Tamsulosin HCl (Flomax) 0.4 mg DAILY PO ; Start 06/15/19 at 11:00; Stop 06/15/19 at 10:37; Status DC Ferrous Sulfate (Feosol) 325 mg DAILYWBKFT PO Last administered on 06/17/19at 08:29; Start 06/15/19 at 12:00 Magnesium Oxide (Magnesium Oxide) 400 mg DAILY PO Last administered on 06/17/19 08:31; Start 06/15/19 at 11:00 Metoprolol Succinate (Toprol Xl) 200 mg DAILY PO Last administered on 06/16/19at 08:32; Start 06/15/19 at 11:00 Fish Oil (Fish Oil) 1,000 mg DAILY PO Last administered on 06/17/19 08:30; Start 06/15/19 at 11:00 Sotalol HCl (Betapace) 160 mg DAILY PO ; Start 06/15/19 at 11:00; Status Cancel Non-Formulary Medication (Ubidecarenone (Co Q-10)) 1 cap DAILY PO ; Start 06/16/19 at 09:00; Status UNV Atorvastatin Calcium (Lipitor) 40 mg HS PO Last administered on 06/17/19at 20:19; Start 06/15/19 at 21:00 Tamsulosin HCl (Flomax) 0.4 mg HS PO Last administered on 06/17/19at 20:19; Start 06/15/19 at 21:00 Dabigatran (Pradaxa) 150 mg BID PO Last administered on 06/17/19at 20:19; Start 06/15/19 at 11:30 Info (Anti-Coagulation Monitoring By Pharmacy) 1 each PRN DAILY PRN [facility] SEE COMMENTS; Start 06/15/19 at 11:30 Acetaminophen (Tylenol) 500 mg PRN Q6HRS PRN PO MILD PAIN / TEMP; Start 06/16/19 at 08:30 Ondansetron HCl (Zofran) 4 mg PRN Q6HRS PRN IVP NAUSEA/VOMITING; Start 06/16/19 at 08:30 Acetaminophen/ Hydrocodone Bitart (Lortab 7.5/325) 1 tab PRN Q4HRS PRN PO MODERATE PAIN 4-6 Last administered on 06/18/19at 05:24; Start 06/17/19 at 21:00 Active Scripts Active Hydrocodone-Apap 5-325 (Hydrocodone Bit/Acetaminophen) 1 Tab Tablet 1 Tab PO PRN Q4HRS PRN Reported Magnesium (Magnesium Oxide) 400 Mg Capsule 1 Cap PO DAILY 30 Days Metoprolol Succinate ( Xl ) (Metoprolol Succinate) 200 Mg Tab.er.24h 1 Tab PO DAILY Ferrous Gluconate 324 Mg Tablet 324 Mg PO DAILY Flomax (Tamsulosin Hcl) 0.4 Mg Cap.er.24h 1 Cap PO HS Vitamin D3 (Cholecalciferol (Vitamin D3)) 1,000 Unit Tablet 1 Tab PO DAILY Co Q-10 (Ubidecarenone) 200 Mg Capsule 1 Cap PO DAILY 30 Days [place] 3 Fish Oil Softgel ([place]-3 Fatty Acids/Fish Oil) 1 Each Capsule.dr 1 Each PO DAILY Pradaxa (Dabigatran Etexilate Mesylate) 150 Mg Capsule 1 Cap PO BID Levothyroxine Sodium 150 Mcg Tablet 1 Tab PO DAILY Atorvastatin Calcium 40 Mg Tablet 1 Tab PO HS Amiodarone Hcl 200 Mg Tablet 1 Tab PO DAILY Allopurinol 300 Mg Tablet 1 Tab PO DAILY Vitals/I & O Vital Sign - Last 24 Hours 11/9/06/17/19 06/17/19 06/17/19 11:00 13:00 14:00 15:00 Temp 97.7 97.6 97.7 97.6 Pulse 70 70 Resp 18 20 20 18 B/P (MAP) 105/58 (74) 145/75 (98) Pulse Ox 96 96 O2 Delivery Room Air Room Air Room Air Room Air 06/17/19 06/17/19 06/17/19 06/17/19 17:37 18:37 19:00 20:30 Temp 97.6 97.6 Pulse 70 Resp 20 20 18 B/P (MAP) 143/59 (87) Pulse Ox 98 O2 Delivery Room Air Room Air Room Air Room Air 06/17/19 06/17/19 06/18/19 06/18/19 21:43 23:00 01:20 02:28 Temp 97.7 97.7 Pulse 70 Resp 18 B/P (MAP) 147/78 (101) Pulse Ox 98 98 O2 Delivery Room Air Room Air Room Air Room Air 06/18/19 06/18/19 06/18/19 03:00 06:27 07:59 Temp 97.5 97.4 97.5 97.4 Pulse 100 69 Resp 18 18 B/P (MAP) 93/54 (67) 104/76 (85) Pulse Ox 95 98 O2 Delivery Room Air Room Air Room Air Intake and Output 06/17/19 06/17/19 06/18/19 15:00 23:00 07:00 Intake Total 240 ml 240 ml Output Total 300 ml Balance -60 ml 240 ml ASHANTI TARIQ MD Jun 18, 2019 10:03
[2019-06-18] MEDS: OMEGA-3 FATTY ACIDS/FISH OIL 1,000 MG CAPSULE. PO SCH (10:40)
[2019-06-18] MEDS: DABIGATRAN ETEXILATE 150 MG CAPSULE. PO SCH ×2 (10:40→20:03)
[2019-06-18] MEDS: MAGNESIUM OXIDE 400 MG TABLET PO SCH (10:41)
[2019-06-18] MEDS: ALLOPURINOL 300 MG TABLET. PO SCH (10:41)
[2019-06-18] MEDS: CHOLECALCIFEROL (VITAMIN D3) 1,000 UNIT TABLET PO SCH (10:41)
[2019-06-18] MEDS: FERROUS SULFATE 325 MG TABLET. PO SCH (10:42)
[2019-06-18] MEDS: AMIODARONE HCL 200 MG TABLET. PO SCH (10:46)
[2019-06-18 11:59] VITALS: BP 119/61
[2019-06-18 15:08] VITALS: BP 145/72
[2019-06-18 19:00] VITALS: BP 158/72
[2019-06-18] MEDS: ATORVASTATIN CALCIUM 40 MG TABLET. PO SCH (20:02)
[2019-06-18] MEDS: TAMSULOSIN 0.4 MG CAP.ER.24H. PO SCH (20:03)
[2019-06-18 23:00] VITALS: BP 149/61
[2019-06-19 03:00] VITALS: BP 116/68
[2019-06-19] MEDS: LEVOTHYROXINE 150 MCG TABLET PO SCH (05:30)
[2019-06-19] MEDS: HYDROcodone/APAP 7.5/325MG 1 TAB TABLET PO PRN ×2 (05:30→12:19)
[2019-06-19 07:00] VITALS: BP 104/61
[2019-06-19] MEDS: FERROUS SULFATE 325 MG TABLET. PO SCH (08:29)
[2019-06-19] MEDS: OMEGA-3 FATTY ACIDS/FISH OIL 1,000 MG CAPSULE. PO SCH (08:29)
[2019-06-19] MEDS: ALLOPURINOL 300 MG TABLET. PO SCH (08:30)
[2019-06-19] MEDS: CHOLECALCIFEROL (VITAMIN D3) 1,000 UNIT TABLET PO SCH (08:30)
[2019-06-19] MEDS: MAGNESIUM OXIDE 400 MG TABLET PO SCH (08:30)
[2019-06-19] MEDS: DABIGATRAN ETEXILATE 150 MG CAPSULE. PO SCH (08:30)
[2019-06-19] MEDS: AMIODARONE HCL 200 MG TABLET. PO SCH (08:30)
[2019-06-19] MEDS: METOPROLOL SUCC 24HR ER 100 MG TAB.ER.24H. PO SCH ×2 (08:31→14:50)
--- NOTE | 2019-06-19 09:12 | PDOC ---
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 He did go to sleep, and awoke in pain. CT scan neck showed acute c2 fracture, he takes pradaxa for afib. AL unable to take wednesday and weekend Pain is ok Needs the c collar x 6 weeks per neuro sx per patient relay Cervical spine xrays again week of 06/19 per NS sx NO surgical intervention needed as of yet Cleared from PT, some observation required for dressing, transitioning, eating, otherwise ok AL is being done by son (not SW) PLAN: He had questions on how to shower the rigid cervical collar Keep current pain regimen - working for him C collar at all times pls dw him and aide at bedside Assisted living on D/c Vitals Vitals Vital Signs Date Time Temp Pulse Resp B/P (MAP) Pulse Ox O2 Delivery O2 Flow Rate FiO2 06/19/19 08:31 68 104/61 06/19/19 08:00 Room Air 06/19/19 07:00 97.5 18 98 97.5 Physical Exam General: Alert, Oriented X3, Cooperative Heart: Regular rate, Normal S1, Normal S2, No murmurs Lungs: Clear Abdomen: Normal bowel sounds, Soft, No tenderness, No hepatosplenomegaly Extremities: No cyanosis, No edema, Normal pulses Skin: No breakdown, No significant lesion Assessment and Plan Assessmemt and Plan Problems Medical Problems: (1) Fall down steps Status: Acute (2) Odontoid fracture with type III morphology Status: Acute Comment Review of Relevant I have reviewed the following items arjun (where applicable) has been applied. Medications Current Medications Metoprolol Tartrate (Lopressor) 50 mg 1X ONCE PO Last administered on 06/14/19at 18:04; Start 06/14/19 at 15:45; Stop 06/14/19 at 15:46; Status DC Magnesium Sulfate 50 ml @ 25 mls/hr 1X ONCE IV Last administered on 06/14/19at 18:04; Start 06/14/19 at 18:00; Stop 06/14/19 at 19:59; Status DC Acetaminophen/ Hydrocodone Bitart (Lortab 5/325) 1 tab PRN Q4HRS PRN PO MODERATE TO SEVERE PAIN Last administered on 06/17/19 17:37; Start 06/14/19 at 17:30; Stop 06/17/19 at 20:55; Status DC Morphine Sulfate (Morphine Sulfate) 4 mg PRN Q4HRS PRN IV PAIN; Start 06/14/19 at 17:30; Stop 06/17/19 at 20:54; Status DC Allopurinol (Zyloprim) 300 mg DAILY PO Last administered on 06/19/19 08:30; Start 06/15/19 at 11:00 Amiodarone HCl (Cordarone) 200 mg DAILY PO Last administered on 06/19/19 08:30; Start 06/15/19 at 11:00 Atorvastatin Calcium (Lipitor) 40 mg DAILY PO ; Start 06/15/19 at 11:00; Stop 06/15/19 at 10:37; Status DC Vitamin D (Vitamin D3) 1,000 unit DAILY PO Last administered on 06/19/19 08:30; Start 06/15/19 at 11:00 Levothyroxine Sodium (Synthroid) 150 mcg DAILY06 PO Last administered on 06/19/19 05:30; Start 06/15/19 at 11:00 Tamsulosin HCl (Flomax) 0.4 mg DAILY PO ; Start 06/15/19 at 11:00; Stop 06/15/19 at 10:37; Status DC Ferrous Sulfate (Feosol) 325 mg DAILYWBKFT PO Last administered on 06/19/19 08:29; Start 06/15/19 at 12:00 Magnesium Oxide (Magnesium Oxide) 400 mg DAILY PO Last administered on 06/19/19 08:30; Start 06/15/19 at 11:00 Metoprolol Succinate (Toprol Xl) 200 mg DAILY PO Last administered on 06/16/19 08:32; Start 06/15/19 at 11:00 Fish Oil (Fish Oil) 1,000 mg DAILY PO Last administered on 06/19/19 08:29; Start 06/15/19 at 11:00 Sotalol HCl (Betapace) 160 mg DAILY PO ; Start 06/15/19 at 11:00; Status Cancel Non-Formulary Medication (Ubidecarenone (Co Q-10)) 1 cap DAILY PO ; Start 06/16/19 at 09:00; Status UNV Atorvastatin Calcium (Lipitor) 40 mg HS PO Last administered on 06/18/19at 20:02; Start 06/15/19 at 21:00 Tamsulosin HCl (Flomax) 0.4 mg HS PO Last administered on 06/18/19at 20:03; Start 06/15/19 at 21:00 Dabigatran (Pradaxa) 150 mg BID PO Last administered on 06/19/19at 08:30; Start 06/15/19 at 11:30 Info (Anti-Coagulation Monitoring By Pharmacy) 1 each PRN DAILY PRN MC SEE COMMENTS; Start 06/15/19 at 11:30 Acetaminophen (Tylenol) 500 mg PRN Q6HRS PRN PO MILD PAIN / TEMP; Start 06/16/19 at 08:30 Ondansetron HCl (Zofran) 4 mg PRN Q6HRS PRN IVP NAUSEA/VOMITING; Start 06/16/19 at 08:30 Acetaminophen/ Hydrocodone Bitart (Lortab 7.5/325) 1 tab PRN Q4HRS PRN PO MODERATE PAIN 4-6 Last administered on 06/19/19at 05:30; Start 06/17/19 at 21:00 Active Scripts Active Hydrocodone-Apap 5-325 (Hydrocodone Bit/Acetaminophen) 1 Tab Tablet 1 Tab PO PRN Q4HRS PRN Reported Magnesium (Magnesium Oxide) 400 Mg Capsule 1 Cap PO DAILY 30 Days Metoprolol Succinate ( Xl ) (Metoprolol Succinate) 200 Mg Tab.er.24h 1 Tab PO DAILY Ferrous Gluconate 324 Mg Tablet 324 Mg PO DAILY Flomax (Tamsulosin Hcl) 0.4 Mg Cap.er.24h 1 Cap PO HS Vitamin D3 (Cholecalciferol (Vitamin D3)) 1,000 Unit Tablet 1 Tab PO DAILY Co Q-10 (Ubidecarenone) 200 Mg Capsule 1 Cap PO DAILY 30 Days [place] 3 Fish Oil Softgel ([place]-3 Fatty Acids/Fish Oil) 1 Each Capsule.dr 1 Each PO DAILY Pradaxa (Dabigatran Etexilate Mesylate) 150 Mg Capsule 1 Cap PO BID Levothyroxine Sodium 150 Mcg Tablet 1 Tab PO DAILY Atorvastatin Calcium 40 Mg Tablet 1 Tab PO HS Amiodarone Hcl 200 Mg Tablet 1 Tab PO DAILY Allopurinol 300 Mg Tablet 1 Tab PO DAILY Vitals/I & O Vital Sign - Last 24 Hours 06/18/19 06/18/19 06/18/19 06/18/19 10:46 11:59 12:55 13:55 Temp 98.8 98.8 Pulse 69 71 Resp 18 20 20 B/P (MAP) 104/76 119/61 (80) Pulse Ox 100 O2 Delivery Room Air Room Air Room Air 06/18/19 06/18/19 06/18/19 06/18/19 15:08 19:00 20:30 21:09 Temp 97.3 97.5 97.3 97.5 Pulse 79 74 Resp 18 18 B/P (MAP) 145/72 (96) 158/72 (100) Pulse Ox 97 95 95 O2 Delivery Room Air Room Air Room Air Room Air 06/18/19 06/19/19 06/19/19 06/19/19 23:00 03:00 06:35 07:00 Temp 97.4 97.8 97.5 97.4 97.8 97.5 Pulse 86 90 68 Resp 18 18 18 B/P (MAP) 149/61 (90) 116/68 (84) 104/61 (75) Pulse Ox 97 97 98 O2 Delivery Room Air Room Air Room Air Room Air 06/19/19 06/19/19 06/19/19 08:00 08:30 08:31 Pulse 68 68 B/P (MAP) 104/61 104/61 O2 Delivery Room Air Intake and Output 06/18/19 06/18/19 06/19/19 15:00 23:00 07:00 Intake Total 400 ml 200 ml 240 ml Balance 400 ml 200 ml 240 ml BULMARO ESPINOZA MD Jun 19, 2019 09:12
--- NOTE | 2019-06-19 10:57 | SNU/HH DC ---
DISCHARGE WITH HOME HEALTH DISCHARGE INFORMATION: Discharge Date: Jun 16, 2019 Final Diagnosis: Problems Medical Problems: (1) Fall down steps Status: Acute (2) Odontoid fracture with type III morphology Status: Acute Condition on Discharge: Stable CODE STATUS: Code Status: Full HOME HEALTH: Face to Face: I certify this patient is under my care and that I, or a nurse practitioner or physician's bacteriology research assistant working with me, had a face to face encounter that meets the physician face to face encounter requirements with this patient on 06/19/19. [facility] For: Assess & Educate Safety, Assess/Skilled Observatio, Medication Management RN For Eval/Treatment: Yes Physical Therapy For: Evalulation/Treatment Pt Meets Homebound Status: Extreme weakness w/ amb., Frequent falls w/ injury POST DISCHARGE ORDERS: Activity Instructions for Disc: Resume previous activity Weight Bearing Status after Di: Full weight bearing DIET AFTER DISCHARGE: Regular CHECKS AFTER DISCHARGE: Checks after discharge: Check blood press - daily FOLLOW-UP: Follow up with: cervical xrays week of 06/19/19. keep cervial collar x 3 weeks per neuro sx CERTIFICATION STATEMENT: Certification Statement: Certification Statement: Based on the above finding, I certify that this patient is confined to the home and needs intermittent custodial care, physical therapy and/or speech therapy, or continues to need occupational therapy.~ This patient is under my care, and I have initiated the establishment of the plan of care.~ This patient will be followed by myself or a community physician who will periodically review the plan of care. Home Meds Active Scripts Hydrocodone Bit/Acetaminophen (HYDROCODONE-APAP 5-325 ) 1 Tab Tablet, 1 TAB PO PRN Q4HRS PRN for PAIN, #30 TAB Prov:ASHANTI TARIQ MD 06/16/19 Reported Medications Magnesium Oxide (MAGNESIUM) 400 Mg Capsule, 1 CAP PO DAILY for rplacemenmt for 30 Days, #30 CAP 0 Refills 06/14/19 Metoprolol Succinate (METOPROLOL SUCCINATE ( XL )) 200 Mg Tab.er.24h, 1 TAB PO DAILY for beta blosker, #90 TAB 3 Refills 06/14/19 Ferrous Gluconate (FERROUS GLUCONATE) 324 Mg Tablet, 324 MG PO DAILY for iron, TAB 06/14/19 Tamsulosin Hcl (FLOMAX) 0.4 Mg Cap.er.24h, 1 CAP PO HS for prostrate, #90 CAP 3 Refills 06/14/19 Cholecalciferol (Vitamin D3) (VITAMIN D3) 1,000 Unit Tablet, 1 TAB PO DAILY for vit, #90 TAB 3 Refills 06/14/19 Ubidecarenone (CO Q-10) 200 Mg Capsule, 1 CAP PO DAILY for vit for 30 Days, #30 CAP 0 Refills 06/14/19 [place]-3 Fatty Acids/Fish Oil ([place] 3 FISH OIL SOFTGEL) 1 Each Capsule.dr, 1 EACH PO DAILY for fish oil, CAP 06/14/19 Dabigatran Etexilate Mesylate (PRADAXA) 150 Mg Capsule, 1 CAP PO BID for thinner, #180 CAP 3 Refills 06/14/19 Levothyroxine Sodium (LEVOTHYROXINE SODIUM) 150 Mcg Tablet, 1 TAB PO DAILY for thyroid condition, #90 TAB 3 Refills 06/14/19 Atorvastatin Calcium (ATORVASTATIN CALCIUM) 40 Mg Tablet, 1 TAB PO HS for cholesterol, #90 TAB 3 Refills 06/14/19 Amiodarone Hcl (AMIODARONE HCL) 200 Mg Tablet, 1 TAB PO DAILY for irregular heart, #90 TAB 3 Refills 06/14/19 Allopurinol (ALLOPURINOL) 300 Mg Tablet, 1 TAB PO DAILY for gout, #90 TAB 3 Refills 06/14/19 BULMARO ESPINOZA MD Jun 19, 2019 10:57
[2019-06-19 11:00] VITALS: BP 142/61
--- NOTE | 2019-06-19 12:42 | NUR ---
SW following. Discussed with RN, pt will be discharging to assisted living arranged by family today around 1400. RN advised no SW needs.
--- NOTE | 2019-06-19 13:27 | RAD ---
Examination: CERVICAL SPINE 2-3V History: C2 fracture Comparison/Correlation: 06/14/2019 CT head and cervical spine without contrast Findings: Frontal and lateral views of cervical spine were obtained by portable technique. Reversal of cervical lordosis is present. Residual body heights are adequate. Moderate disc space narrowing at C4-5 and C5-6 as well as C6-7 noted. Osteopenia noted. Deformity of the base of the dens appears similar upon correlation with CT exam dated 06/14/2019. No significant displacement of the fracture site. Pacemaker and 2 associated leads are noted involving the upper thorax. Impression: No change in orientation of fracture of the base of the dens. No suspicious new findings. Electronically signed by: Mateo Moore MD (06/19/2019 1:24 PM) [facility]
--- NOTE | 2019-06-19 14:06 | PDOC ---
PROGRESS NOTES Subjective Subjective up in chair eating lunch some neck pain but it continues to improve Objective Objective Vital Signs Date Time Temp Pulse Resp B/P (MAP) Pulse Ox O2 Delivery O2 Flow Rate FiO2 06/19/19 12:19 Room Air 06/19/19 11:00 98.4 71 20 142/61 (88) 97 98.4 Intake and Output 06/19/19 07:00 Intake Total 840 ml Balance 840 ml Intake Oral 840 ml # Voids 4 Physical Exam General: Alert, Oriented X3, Cooperative, No acute distress MUSCULOSKELETAL: Other (JOE) Neck: Other (Hard collar on, fits well) Assessment Assessment Problems Medical Problems: (1) Fall down steps Status: Acute (2) Odontoid fracture with type III morphology Status: Acute Plan Plan of Care c spine x rays today prior to dc ok to dc to Assisted living with HH will follow as OP he will need to wear collar 3 months will need cervical CT in 4-5 weeks to assess healing of fracture Comment Review of Relevant I have reviewed the following items arjun (where applicable) has been applied. Medications Current Medications Metoprolol Tartrate (Lopressor) 50 mg 1X ONCE PO Last administered on 06/14/19at 18:04; Start 06/14/19 at 15:45; Stop 06/14/19 at 15:46; Status DC Magnesium Sulfate 50 ml @ 25 mls/hr 1X ONCE IV Last administered on 06/14/19at 18:04; Start 06/14/19 at 18:00; Stop 06/14/19 at 19:59; Status DC Acetaminophen/ Hydrocodone Bitart (Lortab 5/325) 1 tab PRN Q4HRS PRN PO MODERATE TO SEVERE PAIN Last administered on 06/17/19at 17:37; Start 06/14/19 at 17:30; Stop 06/17/19 at 20:55; Status DC Morphine Sulfate (Morphine Sulfate) 4 mg PRN Q4HRS PRN IV PAIN; Start 06/14/19 at 17:30; Stop 06/17/19 at 20:54; Status DC Allopurinol (Zyloprim) 300 mg DAILY PO Last administered on 06/19/19at 08:30; Start 06/15/19 at 11:00 Amiodarone HCl (Cordarone) 200 mg DAILY PO Last administered on 06/19/19at 08:30; Start 06/15/19 at 11:00 Atorvastatin Calcium (Lipitor) 40 mg DAILY PO ; Start 06/15/19 at 11:00; Stop 06/15/19 at 10:37; Status DC Vitamin D (Vitamin D3) 1,000 unit DAILY PO Last administered on 06/19/19 08:30; Start 06/15/19 at 11:00 Levothyroxine Sodium (Synthroid) 150 mcg DAILY06 PO Last administered on 06/19/19 05:30; Start 06/15/19 at 11:00 Tamsulosin HCl (Flomax) 0.4 mg DAILY PO ; Start 06/15/19 at 11:00; Stop 06/15/19 at 10:37; Status DC Ferrous Sulfate (Feosol) 325 mg DAILYWBKFT PO Last administered on 06/19/19 08:29; Start 06/15/19 at 12:00 Magnesium Oxide (Magnesium Oxide) 400 mg DAILY PO Last administered on 06/19/19 08:30; Start 06/15/19 at 11:00 Metoprolol Succinate (Toprol Xl) 200 mg DAILY PO Last administered on 06/16/19 08:32; Start 06/15/19 at 11:00 Fish Oil (Fish Oil) 1,000 mg DAILY PO Last administered on 06/19/19 08:29; Start 06/15/19 at 11:00 Sotalol HCl (Betapace) 160 mg DAILY PO ; Start 06/15/19 at 11:00; Status Cancel Non-Formulary Medication (Ubidecarenone (Co Q-10)) 1 cap DAILY PO ; Start 06/16/19 at 09:00; Status UNV Atorvastatin Calcium (Lipitor) 40 mg HS PO Last administered on 06/18/19 20:02; Start 06/15/19 at 21:00 Tamsulosin HCl (Flomax) 0.4 mg HS PO Last administered on 06/18/19 20:03; Start 06/15/19 at 21:00 Dabigatran (Pradaxa) 150 mg BID PO Last administered on 06/19/19 08:30; Start 06/15/19 at 11:30 Info (Anti-Coagulation Monitoring By Pharmacy) 1 each PRN DAILY PRN MC SEE COMMENTS Last administered on 06/19/19 10:50; Start 06/15/19 at 11:30 Acetaminophen (Tylenol) 500 mg PRN Q6HRS PRN PO MILD PAIN / TEMP; Start 06/16/19 at 08:30 Ondansetron HCl (Zofran) 4 mg PRN Q6HRS PRN IVP NAUSEA/VOMITING; Start 06/16/19 at 08:30 Acetaminophen/ Hydrocodone Bitart (Lortab 7.5/325) 1 tab PRN Q4HRS PRN PO MODERATE PAIN 4-6 Last administered on 06/19/19at 12:19; Start 06/17/19 at 21:00 Active Scripts Active Hydrocodone-Apap 5-325 (Hydrocodone Bit/Acetaminophen) 1 Tab Tablet 1 Tab PO PRN Q4HRS PRN Reported Magnesium (Magnesium Oxide) 400 Mg Capsule 1 Cap PO DAILY 30 Days Metoprolol Succinate ( Xl ) (Metoprolol Succinate) 200 Mg Tab.er.24h 1 Tab PO DAILY Ferrous Gluconate 324 Mg Tablet 324 Mg PO DAILY Flomax (Tamsulosin Hcl) 0.4 Mg Cap.er.24h 1 Cap PO HS Vitamin D3 (Cholecalciferol (Vitamin D3)) 1,000 Unit Tablet 1 Tab PO DAILY Co Q-10 (Ubidecarenone) 200 Mg Capsule 1 Cap PO DAILY 30 Days [place] 3 Fish Oil Softgel ([place]-3 Fatty Acids/Fish Oil) 1 Each Capsule.dr 1 Each PO DAILY Pradaxa (Dabigatran Etexilate Mesylate) 150 Mg Capsule 1 Cap PO BID Levothyroxine Sodium 150 Mcg Tablet 1 Tab PO DAILY Atorvastatin Calcium 40 Mg Tablet 1 Tab PO HS Amiodarone Hcl 200 Mg Tablet 1 Tab PO DAILY Allopurinol 300 Mg Tablet 1 Tab PO DAILY Vitals/I & O Vital Sign - Last 24 Hours 06/18/19 06/18/19 06/18/19 06/18/19 15:08 19:00 20:30 21:09 Temp 97.3 97.5 97.3 97.5 Pulse 79 74 Resp 18 18 B/P (MAP) 145/72 (96) 158/72 (100) Pulse Ox 97 95 95 O2 Delivery Room Air Room Air Room Air Room Air 06/18/19 06/19/19 06/19/19 06/19/19 23:00 03:00 06:35 07:00 Temp 97.4 97.8 97.5 97.4 97.8 97.5 Pulse 86 90 68 Resp 18 18 18 B/P (MAP) 149/61 (90) 116/68 (84) 104/61 (75) Pulse Ox 97 97 98 O2 Delivery Room Air Room Air Room Air Room Air 06/19/19 06/19/19 06/19/19 06/19/19 08:00 08:30 08:31 11:00 Temp 98.4 98.4 Pulse 68 68 71 Resp 20 B/P (MAP) 104/61 104/61 142/61 (88) Pulse Ox 97 O2 Delivery Room Air Room Air 06/19/19 12:19 O2 Delivery Room Air Intake and Output 06/18/19 06/18/19 06/19/19 15:00 23:00 07:00 Intake Total 400 ml 200 ml 240 ml Balance 400 ml 200 ml 240 ml KORINA VIEYRA VAN[employer] MACHINE OPERATOR Jun 19, 2019 14:06
[2019-06-19 14:47] VITALS: BP 128/87
[2019-06-19 14:50] VITALS: BP 128/87
== END 2019-06-19 14:58 | disposition home or self-care (01) | DRG 552 ==
LOC: ER 12:06 → 1 WEST ICU 14:30 → 4 NORTH 06-15 13:55
PROVIDERS: ADMIT Internal Medicine; ATTEND Internal Medicine
DX: S12.110A Anterior displaced Type II dens fracture, initial encounter for closed fracture (principal); E66.9 Obesity, unspecified; Z68.29 Body mass index [BMI] 29.0-29.9, adult; I48.91 Unspecified atrial fibrillation; E03.9 Hypothyroidism, unspecified; E78.00 Pure hypercholesterolemia, unspecified; N18.2 Chronic kidney disease, stage 2 (mild); I12.9 Hypertensive chronic kidney disease with stage 1 through stage 4 chronic kidney disease, or unspecified chronic kidney disease; M10.9 Gout, unspecified; M81.0 Age-related osteoporosis without current pathological fracture; N40.0 Benign prostatic hyperplasia without lower urinary tract symptoms; W10.9XXA Fall (on) (from) unspecified stairs and steps, initial encounter; Y93.89 Activity, other specified; Y92.89 Other specified places as the place of occurrence of the external cause; Y99.8 Other external cause status; Z79.899 Other long term (current) drug therapy
CPT/HCPCS: 36415; 70450; 72040; 72125; 80048; 80053; 83735; 85025; 85610; 85730; G0480; J3475; 97116; 99285-25; G0378

== ENCOUNTER → 2019-07-24 | Outpatient (CLI) | payer MEDICARE, OTHER ==
[~2019-07-24] MED LIST: ALLO300T PO; AMIO200T4 PO; ATOR40TA59 PO; CHOL10003 PO; DABI150C PO; FERR324T2 PO; HYDR-2761 PO; LEVO150T5 PO; MAGN400C PO; METO200T46 PO; OMEG1CAP38 PO; SOTA160T7 PO; TAMS0.4C97 PO; UBID200C7 PO
--- NOTE | 2019-07-24 14:27 | KCIC ---
CT of the cervical spine compared to similar exam dated June 142018 for C2 fracture follow-up. TECHNIQUE: Contiguous helical 2 mm axial images are obtained through the cervical spine. Sagittal and coronal reformations are evaluated. FINDINGS: The previously described acute type III odontoid fracture is redemonstrated, with no change in alignment from prior exam, though perhaps minimal healing callus formation. No new fracture or acute osseous abnormality is identified. No alignment abnormality of the cervical spine is seen. Extensive cervical spine spondylosis is present from C3 through C7, with significant disc space narrowing, anterior and posterior osteophytes, and uncovertebral and facet arthrosis. This may create some degree of bony canal stenosis at C5-6 and C6-7. There is likely moderate to severe neural foraminal narrowing on the left at C4-5, bilaterally C5-6, and once again on the left at C6-7. Bilateral internal carotid artery calcifications are again noted, once again with retroperitoneal course. Prevertebral soft tissues are otherwise unremarkable. IMPRESSION: 1. Redemonstrated stable type III odontoid fracture with minimal anterior subluxation and mild interval callus formation. 2. Multilevel spondylosis resulting in bony central canal stenosis at C5-6 and C6-7, and likely moderate to severe neuroforaminal stenosis at multiple levels as well. PQRS Compliance Statement: One or more of the following individualized dose reduction techniques were utilized for this examination: 1. Automated exposure control 2. Adjustment of the mA and/or kV according to patient size 3. Use of iterative reconstruction technique Electronically signed by: Christopher Encinas MD (07/24/2019 2:24 PM) [email or web address]
== END | disposition home or self-care (01) ==
LOC: KCIC CT 10:36
PROVIDERS: ATTEND Neurological Surgery
DX: S12.120A Other displaced dens fracture, initial encounter for closed fracture (principal); M47.812 Spondylosis without myelopathy or radiculopathy, cervical region; M48.02 Spinal stenosis, cervical region; M25.78 Osteophyte, vertebrae; X58.XXXA Exposure to other specified factors, initial encounter; Y93.89 Activity, other specified; Y92.89 Other specified places as the place of occurrence of the external cause; Y99.8 Other external cause status; Z79.899 Other long term (current) drug therapy; Z87.891 Personal history of nicotine dependence
CPT/HCPCS: 72125

== ENCOUNTER → 2019-09-12 | Outpatient (CLI) | payer MEDICARE, OTHER ==
--- NOTE | 2019-09-13 11:42 | RAD ---
CT CERVICAL SPINE WO CONTRAST History: C2 fracture. Technique: Noncontrast CT imaging was performed of the cervical spine. Multiplanar images are reviewed. Exposure: One or more of the following individualized dose reduction techniques were utilized for this examination: 1. Automated exposure control 2. Adjustment of the mA and/or kV according to patient size 3. Use of iterative reconstruction technique. Comparison: CT July 24, 2019 and June 14, 2019 Findings: Pulmonary emphysema. Healing C2 fracture. Unchanged alignment. The fracture line is less evident compared to prior. Unchanged angulated appearance of the dens. No new fracture. Straightening of the normal cervical lordosis. Minimal grade 1 anterolisthesis C7 on T1, unchanged. Moderate multilevel degenerative disc changes most prominent C5-C6 and C6-C7. Moderate facet arthropathy most prominent C4-C5, C5-C6 and C7-T1. C3-C4 partial facet vertebral body fusion. Multilevel neuroforaminal narrowing. Canal narrowing most prominent C5-C6, unchanged. No high-grade canal stenosis. Retropharyngeal course of the bilateral common and internal carotid arteries with calcified plaque. Impression: 1. Healing type III dens fracture, unchanged alignment. 2. Moderate multilevel cervical spinal lordosis. Electronically signed by: Oscar Garcia DO (09/13/2019 11:39 AM) [id number]
== END | disposition home or self-care (01) ==
LOC: CT 12:10
PROVIDERS: ATTEND Neurological Surgery
DX: M84.48XA Pathological fracture, other site, initial encounter for fracture (principal); M40.292 Other kyphosis, cervical region; I65.23 Occlusion and stenosis of bilateral carotid arteries; M47.812 Spondylosis without myelopathy or radiculopathy, cervical region; M48.02 Spinal stenosis, cervical region; M12.88 Other specific arthropathies, not elsewhere classified, other specified site
CPT/HCPCS: 72125

== ENCOUNTER → 2019-09-29 | Outpatient (CLI) | payer MEDICARE, OTHER ==
--- NOTE | 2019-09-30 09:32 | RAD ---
2 view study of the cervical spine Clinical indications: Follow-up of cervical fracture from June 2019. COMPARISON: June 19, 2019. FINDINGS: Again seen is anterior displacement of C1 with the odontoid process relative to the C2 body and spinous process. Displacement is 6 mm and unchanged. No discitis or lytic process is seen. Degenerative disc space narrowing and endplate spurring is seen at C4-5 and C5-6 and C6-7. Autofusion of C3-4 disc space and facet joints is seen. There is degenerative facet arthropathy present. IMPRESSION: Stable displacement of the odontoid process. Stable alignment. Stable study from June 19, 2019. Electronically signed by: King Valencia MD (09/30/2019 9:29 AM) [facility]
== END | disposition home or self-care (01) ==
LOC: RAD 13:03
PROVIDERS: ATTEND Neurological Surgery
DX: S12.120D Other displaced dens fracture, subsequent encounter for fracture with routine healing (principal); M48.02 Spinal stenosis, cervical region; M46.02 Spinal enthesopathy, cervical region; M12.88 Other specific arthropathies, not elsewhere classified, other specified site; X58.XXXD Exposure to other specified factors, subsequent encounter
CPT/HCPCS: 72040